=== PATIENT | female | born 1950 | race Caucasian/White ===

== ENCOUNTER 2021-07-25 15:02 | Emergency (ER) | payer MEDICARE ==
[~2021-07-25] VITALS: Ht 162.6 cm; Wt 99.8 kg
[2021-07-25 16:08] LABS: BASOPHILS ABSOLUTE AUTO 0.04 K/mm3 (0.00-0.23); BASOPHILS PERCENT AUTO 1 % (0-2); EOSINOPHILS ABSOLUTE AUTO 0.19 K/mm3 (0.00-0.68); EOSINOPHILS PERCENT AUTO 3 % (0-6); Hematocrit 34.1 % (33.0-51.0); Hemoglobin 10.8 g/dL (11.5-16.0); IMMATURE GRAN ABSOLUTE AUTO 0.02 K/mm3 (0.00-0.10); IMMATURE GRAN PERCENT AUTO 0 % (0-1); LYMPHOCYTES ABSOLUTE AUTO 0.77 K/mm3 (0.84-5.20); LYMPHOCYTES PERCENT AUTO 13 % (21-46); MONOCYTES ABSOLUTE AUTO 0.61 K/mm3 (0.16-1.47); MONOCYTES PERCENT AUTO 11 % (4-13); Mean Corpuscular HGB 27.6 pg (26.0-34.0); Mean Corpuscular HGB Conc 31.7 g/dL (31.5-36.5); Mean Corpuscular Volume 87 fL (80-100); Mean Platelet Volume 9.4 fL (9.1-12.4); NEUTROPHILS ABSOLUTE AUTO 4.14 K/mm3 (1.96-9.15); NEUTROPHILS PERCENT AUTO 72 % (41-73); Platelet Count 199 K/mm3 (150-400); RDW Coefficient Variation 18.1 % (11.7-14.2); RDW Standard Deviation 57.3 fL (35.1-46.3); Red Blood Cell Count 3.91 M/mm3 (3.80-5.20); White Blood Cell Count 5.77 K/mm3 (4.00-11.30)
[2021-07-25] MEDS ORDERED: FURO40 PO (16:13)
[2021-07-25] MEDS ORDERED: POTCHL20ER PO (16:13)
[2021-07-25] MEDS ORDERED: ALDACTONE100 MG PO (16:14)
[2021-07-25] MEDS ORDERED: EUTHYROX75 MC1 PO (16:14)
[2021-07-25 16:32] LABS: Albumin, Blood 2.6 g/dL (3.4-5.0); Albumin/Globulin Ratio 0.5 (0.8-1.8); Bilirubin, Total 2.8 mg/dL (0.1-1.0); Bun/Creatinine Ratio 18.8 (12.0-20.0); Calcium, Blood 8.6 mg/dL (8.5-10.1); Creatinine, Blood 0.96 mg/dL (0.40-1.00); Globulin, Blood 4.9 g/dL (2.2-4.0); Magnesium, Blood 2.1 mg/dL (1.6-2.4); Potassium, Blood 3.4 mmol/L (3.5-5.5); Total Protein, Blood 7.5 g/dL (6.4-8.2)
[2021-07-25 17:21] LABS: International Normalized Ratio 1.33; Prothrombin Time Results 14.1 Sec (9.7-11.5)
== END 2021-07-25 18:35 | disposition home or self-care (01) ==
LOC: ER 15:02
PROVIDERS: Emergency Medicine; Physician Assistant
DX: K72.90 Hepatic failure, unspecified without coma (principal); K74.60 Unspecified cirrhosis of liver; R18.8 Other ascites; E03.9 Hypothyroidism, unspecified; Z79.899 Other long term (current) drug therapy
CPT/HCPCS: 71045; 80053; 83735; 85025; 85610; 85730; 93005; 93010; 99284-25

== ENCOUNTER 2021-11-12 15:35 | Emergency (ER) | payer SELFPAY ==
[~2021-11-12] VITALS: Ht 160 cm; Wt 96.2 kg
[~2021-11-12 15:35] MED LIST: ALDACTONE100 MG PO; EUTHYROX75 MC1 PO; FURO40 PO; POTCHL20ER PO
[2021-11-12 16:28] LABS: BASOPHILS ABSOLUTE AUTO 0.05 K/mm3 (0.00-0.23); BASOPHILS PERCENT AUTO 1 % (0-2); EOSINOPHILS ABSOLUTE AUTO 0.19 K/mm3 (0.00-0.68); EOSINOPHILS PERCENT AUTO 2 % (0-6); Hematocrit 34.3 % (33.0-51.0); Hemoglobin 11.3 g/dL (11.5-16.0); IMMATURE GRAN ABSOLUTE AUTO 0.05 K/mm3 (0.00-0.10); IMMATURE GRAN PERCENT AUTO 1 % (0-1); LYMPHOCYTES ABSOLUTE AUTO 0.95 K/mm3 (0.84-5.20); LYMPHOCYTES PERCENT AUTO 11 % (21-46); MONOCYTES ABSOLUTE AUTO 0.99 K/mm3 (0.16-1.47); MONOCYTES PERCENT AUTO 11 % (4-13); Mean Corpuscular HGB 28.8 pg (26.0-34.0); Mean Corpuscular HGB Conc 32.9 g/dL (31.5-36.5); Mean Corpuscular Volume 87 fL (80-100); NEUTROPHILS ABSOLUTE AUTO 6.63 K/mm3 (1.96-9.15); NEUTROPHILS PERCENT AUTO 75 % (41-73); Platelet Count 222 K/mm3 (150-400); RDW Coefficient Variation 20.5 % (11.7-14.2); RDW Standard Deviation 65.3 fL (35.1-46.3); Red Blood Cell Count 3.93 M/mm3 (3.80-5.20); White Blood Cell Count 8.86 K/mm3 (4.00-11.30)
[2021-11-12 16:45] LABS: International Normalized Ratio 1.28; Prothrombin Time Results 13.2 Sec (9.7-11.5)
== END 2021-11-12 17:06 | disposition home or self-care (01) ==
LOC: ER 15:35
PROVIDERS: Physician Assistant
DX: R18.8 Other ascites (principal); E03.9 Hypothyroidism, unspecified; Z79.899 Other long term (current) drug therapy
CPT/HCPCS: 85025; 85610; 85730; 99284

== ENCOUNTER 2021-11-13 15:21 | Day surgery (SDC) | payer SELFPAY | END 2021-11-13 23:59 | disposition home or self-care (01) | LOC: US 15:21 | DX: R18.8 Other ascites (principal) | CPT/HCPCS: 49083 ==

== ENCOUNTER 2021-11-19 16:06 | Inpatient (IN) | payer MEDICARE ==
[~2021-11-19] VITALS: Ht 160 cm; Wt 94.0 kg
[2021-11-19 16:27] LABS: BASOPHILS ABSOLUTE AUTO 0.04 K/mm3 (0.00-0.23); BASOPHILS PERCENT AUTO 0 % (0-2); EOSINOPHILS ABSOLUTE AUTO 0.08 K/mm3 (0.00-0.68); EOSINOPHILS PERCENT AUTO 0 % (0-6); Hematocrit 30.9 % (33.0-51.0); Hemoglobin 10.3 g/dL (11.5-16.0); IMMATURE GRAN ABSOLUTE AUTO 0.21 K/mm3 (0.00-0.10); IMMATURE GRAN PERCENT AUTO 1 % (0-1); LYMPHOCYTES ABSOLUTE AUTO 0.66 K/mm3 (0.84-5.20); LYMPHOCYTES PERCENT AUTO 4 % (21-46); MONOCYTES ABSOLUTE AUTO 1.11 K/mm3 (0.16-1.47); MONOCYTES PERCENT AUTO 6 % (4-13); Mean Corpuscular HGB 29.3 pg (26.0-34.0); Mean Corpuscular HGB Conc 33.3 g/dL (31.5-36.5); Mean Corpuscular Volume 88 fL (80-100); Mean Platelet Volume 8.7 fL (9.1-12.4); NEUTROPHILS ABSOLUTE AUTO 15.89 K/mm3 (1.96-9.15); NEUTROPHILS PERCENT AUTO 88 % (41-73); Platelet Count 211 K/mm3 (150-400); RDW Coefficient Variation 20.5 % (11.7-14.2); RDW Standard Deviation 65.2 fL (35.1-46.3); Red Blood Cell Count 3.52 M/mm3 (3.80-5.20); White Blood Cell Count 17.99 K/mm3 (4.00-11.30)
[2021-11-19 16:53] LABS: Albumin, Blood 2.2 g/dL (3.4-5.0); Albumin/Globulin Ratio 0.5 (0.8-1.8); Bilirubin, Total 3.5 mg/dL (0.1-1.0); Bun/Creatinine Ratio 21.3 (12.0-20.0); Calcium, Blood 7.8 mg/dL (8.5-10.1); Creatinine, Blood 1.22 mg/dL (0.40-1.00); Globulin, Blood 4.1 g/dL (2.2-4.0); Potassium, Blood 3.8 mmol/L (3.5-5.5); Total Protein, Blood 6.3 g/dL (6.4-8.2)
[2021-11-19 19:16] LABS: Free Thyroxine 1.45 ng/dL (0.70-1.60); Triiodothyronine, Free 1.05 pg/mL (2.18-3.98)
[2021-11-19 20:54] LABS: Source, Urine Clean Catch
[2021-11-19 21:04] LABS: Bilirubin, Urine Neg (Neg); Blood, Urine 1+ (Neg); Glucose Qualitative, Urine Neg (Neg); Ketones, Urine Neg (Neg); Leukocyte Esterase, Urine 1+ (Neg); Nitrite, Urine Neg (Neg); Protein, Urine Neg (Neg); Urobilinogen, Urine 1+ (Normal)
[2021-11-19 21:16] LABS: Appearance, Urine Hazy (Clear); Color, Urine Yellow (P-Yellow)
[2021-11-19 21:18] LABS: Bacteria Many /hpf; Red Blood Cells, Urine 0-2 /hpf (0-2); Squamous Epithelial Cells Mod /hpf (Few)
[2021-11-19 22:31] LABS: Automated BF RBC Count 0.002 M/mm3 (0-0); Body Fluid WBC Count 130 /mm3 (0-999)
[2021-11-19 22:48] LABS: Glucose, Body Fluid 146 mg/dL; Lactate Dehydrogenase, Body Fl 27 U/L; Protein, Body Fluid 0.7 g/dL
[2021-11-19 23:14] LABS: Total Cell Count, Body Fluid 100
[2021-11-19 23:15] LABS: Appearance, Body Fluid Hazy (Clear); Color, Body Fluid L Yellow (None-Yellow)
--- NOTE | 2021-11-20 02:41 | NUR ---
ASSUMPTION OF CARE RECEIVED REPORT FROM ED RN, ASSUMED CARE OF PATIENT. PATIENT ADMITTED TO PCU, REMAINS IN ED AT THIS TIME. PATIENT A/O. SOB IMPROVING, VITALS STABLE. IV IN RAC SL. MEDEIROS CATHETER PATENT AND DRAINING CLEAR, YELLOW URINE. WILL REVIEW ORDERS AND TREAT PRESCRIBED.
--- NOTE | 2021-11-20 03:27 | NUR ---
OXYGEN PATIENT REQUESTING OXYGEN STATING IT RELIEVES HER SOB. 2L 02 VIA NC PLACED PER REQUEST. 02 SATS REMAINED STABLE.
[2021-11-20 06:25] LABS: BASOPHILS ABSOLUTE AUTO 0.03 K/mm3 (0.00-0.23); BASOPHILS PERCENT AUTO 0 % (0-2); EOSINOPHILS ABSOLUTE AUTO 0.36 K/mm3 (0.00-0.68); EOSINOPHILS PERCENT AUTO 3 % (0-6); Hematocrit 30.7 % (33.0-51.0); IMMATURE GRAN ABSOLUTE AUTO 0.21 K/mm3 (0.00-0.10); IMMATURE GRAN PERCENT AUTO 1 % (0-1); LYMPHOCYTES ABSOLUTE AUTO 0.98 K/mm3 (0.84-5.20); LYMPHOCYTES PERCENT AUTO 7 % (21-46); MONOCYTES ABSOLUTE AUTO 1.46 K/mm3 (0.16-1.47); MONOCYTES PERCENT AUTO 10 % (4-13); Mean Corpuscular HGB Conc 32.6 g/dL (31.5-36.5); Mean Corpuscular Volume 89 fL (80-100); Mean Platelet Volume 8.8 fL (9.1-12.4); NEUTROPHILS ABSOLUTE AUTO 11.56 K/mm3 (1.96-9.15); NEUTROPHILS PERCENT AUTO 79 % (41-73); Platelet Count 190 K/mm3 (150-400); RDW Coefficient Variation 20.6 % (11.7-14.2); RDW Standard Deviation 67.5 fL (35.1-46.3); Red Blood Cell Count 3.45 M/mm3 (3.80-5.20)
[2021-11-20 06:38] LABS: International Normalized Ratio 1.43; Prothrombin Time Results 14.7 Sec (9.7-11.5)
--- NOTE | 2021-11-20 06:46 | NUR ---
SHIFT SUMMARY SOB DECREASING THROUGH SHIFT. VITALS STABLE, 02 AT 2L VIA NC FOR PATIENT'S COMFORT. PATIENT ABLE TO CLEARLY COMMUNICATE NEEDS AND DISCOMFORTS. CONTINUES TO STAY IN ED AWAITING BED IN PCU UNIT. MEDEIROS REMAINS PATENT AND DRAINING. CONTINUING TO MONITOR, WILL REPORT TO ONCOMING RN.
[2021-11-20 07:12] LABS: Albumin, Blood 2.2 g/dL (3.4-5.0); Albumin/Globulin Ratio 0.6 (0.8-1.8); Bilirubin, Total 3.6 mg/dL (0.1-1.0); Bun/Creatinine Ratio 23.7 (12.0-20.0); Calcium, Blood 8.1 mg/dL (8.5-10.1); Creatinine, Blood 1.14 mg/dL (0.40-1.00); Globulin, Blood 3.9 g/dL (2.2-4.0); Potassium, Blood 4.2 mmol/L (3.5-5.5); Total Protein, Blood 6.1 g/dL (6.4-8.2)
[2021-11-20 11:48] LABS: Albumin, Body Fluid 0.4 g/dL; Glucose, Body Fluid 143 mg/dL; Lactate Dehydrogenase, Body Fl 57 U/L; Protein, Body Fluid 1.1 g/dL
[2021-11-20 12:19] LABS: Appearance, Body Fluid Cloudy (Clear); Color, Body Fluid Yellow (None-Yellow); Total Cell Count, Body Fluid 100
[2021-11-20 12:27] LABS: Automated BF RBC Count 0.004 M/mm3 (0-0); Automated BF WBC Count 0.238 K/mm3 (0-999); Body Fluid WBC Count 238 /mm3 (0-999); RBC Count, Body Fluid 4000 /mm3 (0-0)
--- NOTE | 2021-11-20 14:30 | NUR ---
RECEIVED PT FROM ER [facility]IA [facility]. PT IS A&0X4. DENIES PAIN. PT IS ORTHOPNEIC AND SOB WITH EXERTION. LUNGS DIMINISHED ON THE RIGHT. 1 LITER REMOVED TODAY WITH THORACENTESIS-BANDAIDE IN PLACE. SATS>90% ON RA. NO NOTED COUGH. ECG SHOWS SR. SBP TRENDING 90'S. ANASARCA AND PERIPHERAL EDEMA TO LOWER EXTREMITIES. PT DENIES NAUSEA. 5 LITERS REMOVED TODAY WITH PARACENTESIS-BANDAIDE INTACT TO LEFT ABDOMEN. MEDEIROS DRAINING ADEQUATE AMOUNT OF YELLOW URINE. SKIN IS JAUNDICED. SKIN FRAIL WITH SCATTERED BRUISES T/O-ESPECIALLY TO UPPER EXTREMITIES. PT DAUGHTER TO DELIVER PT BELONGINGS. PT REQUESTED THAT STAFF AURIST THE BELONGINGS OUT FRONT OF THE HOSPITAL AND DELIVER $60 (3 20$ BILLS). DARINEL MEDINA TO GIVE PT DAUGHTER KAJAL THE 60$ AND AURIST PT BELONGINGS WELL.
--- NOTE | 2021-11-20 18:15 | NUR ---
PT TO MRI VIA BED.
--- NOTE | 2021-11-20 20:00 | NUR ---
PT RETURNS FROM MRI AT 1900. PT ALERT AND ORIENTED. PLEASANT AND COOPERATIVE WITH CARE AND ASSESSMENT. PT DENIES PAIN AT THIS TIME. ROOM AIR. NO COMPLAINTS OF DYSPNEA. PT STATES BREATHING HAS IMPROVED GREATLY AFTER THORACENTESIS AND PARACENTESIS. WILL REVIEW CHART AND PLAN OF CARE FOR THIS PT.
--- NOTE | 2021-11-20 23:15 | NUR ---
PT RESTING COMFORTABLY IN BED. NO COMPLAINTS. NO S/S DISTRESS. NO DYSPNEA. WILL CONTINUE TO MONITOR.
[2021-11-21 03:10] LABS: BASOPHILS ABSOLUTE AUTO 0.02 K/mm3 (0.00-0.23); BASOPHILS PERCENT AUTO 0 % (0-2); EOSINOPHILS ABSOLUTE AUTO 0.27 K/mm3 (0.00-0.68); EOSINOPHILS PERCENT AUTO 4 % (0-6); Hematocrit 26.8 % (33.0-51.0); Hemoglobin 8.9 g/dL (11.5-16.0); IMMATURE GRAN ABSOLUTE AUTO 0.09 K/mm3 (0.00-0.10); IMMATURE GRAN PERCENT AUTO 1 % (0-1); LYMPHOCYTES PERCENT AUTO 13 % (21-46); MONOCYTES ABSOLUTE AUTO 0.78 K/mm3 (0.16-1.47); MONOCYTES PERCENT AUTO 11 % (4-13); Mean Corpuscular HGB 29.9 pg (26.0-34.0); Mean Corpuscular HGB Conc 33.2 g/dL (31.5-36.5); Mean Corpuscular Volume 90 fL (80-100); Mean Platelet Volume 8.9 fL (9.1-12.4); NEUTROPHILS ABSOLUTE AUTO 4.96 K/mm3 (1.96-9.15); NEUTROPHILS PERCENT AUTO 71 % (41-73); Platelet Count 142 K/mm3 (150-400); RDW Coefficient Variation 20.5 % (11.7-14.2); RDW Standard Deviation 66.7 fL (35.1-46.3); Red Blood Cell Count 2.98 M/mm3 (3.80-5.20); White Blood Cell Count 7.02 K/mm3 (4.00-11.30)
[2021-11-21 03:57] LABS: Albumin, Blood 2.3 g/dL (3.4-5.0); Albumin/Globulin Ratio 0.9 (0.8-1.8); Bilirubin, Total 2.8 mg/dL (0.1-1.0); Calcium, Blood 7.7 mg/dL (8.5-10.1); Creatinine, Blood 1.13 mg/dL (0.40-1.00); Globulin, Blood 2.6 g/dL (2.2-4.0); Potassium, Blood 4.2 mmol/L (3.5-5.5); Total Protein, Blood 4.9 g/dL (6.4-8.2)
--- NOTE | 2021-11-21 05:47 | NUR ---
PT HAS BEEN ABLE TO REST THIS NIGHT. AWAKENS EASILY IF NEEDED. NO COMPLAINTS OF DYSPNEA. DOES HAVE SHORT SPORATIC PLEURITIC TYPE PAIN. THIS IS BRIEF. BLOOD PRESSURES REMAIN MILDLY LOW THOUGH MAINTAINS MAP > 65. PT DOES TAKE MIDODRINE FOR BLOOD PRESSURE SUPPORT. WILL CONTINUE TO MONITOR PT, AND WILL REPORT OFF TO ONCOMING RN.
[2021-11-21 06:10] LABS: HBSAG SCREEN Negative (Negative); HEP B CORE AB, TOT Positive (Negative); HEP C VIRUS AB >11.0 (0.0-0.9)
--- NOTE | 2021-11-21 08:00 | NUR ---
PT A&OX4. PT DENIES PAIN OR SOB AT REST. ECG SHOWS SR. BP 84/54 WITH MAP 60. LASIX AND ALDACTONE HELD THIS AM. PT REFUSED LOVENOX INJECTION-STATES "I WANT TO TALK TO MY DOCTOR ABOUT THAT." ANASARCA AND 3+ LOWER EXTREMITY EDEMA CONTINUES. LOWER EXTREMITIES ELEVATED ON PILLOWS. LUNGS DIMINISHED THROUGH OUT THE RIGHT, BUT PT MAINTAINS SATS>90% ON RA. SOME SOB WITH EXERTION. NO NOTED COUGH. PT REPORTS INTERMITTENT NAUSEA AND DECREASED APPETITE. PT ATE A FEW BITES OF HER BREAKFAST AND THEN REQUESTED TO "JUST COVER IT AND LEAVE IT IN HERE FOR ME." REQUEST GRANTED. PT ABLE TO REPOSITION HERSELF IN BED AND UTILIZES CALL SYSTEM. CALL LIGHT PLACED WITHIN PT REACH.
--- NOTE | 2021-11-21 12:00 | NUR ---
PT HAS BEEN SLEEPING WHEN NOT DISTURBED. PT AWAKENS EASILY TO VOICE. PT DENIES PAIN OR SOB, BUT DOES REPORT NAUSEA. PT REFUSING ANTI-EMETIC. PT REQUESTS TO JUST SLEEP. REFUSING LUNCH. BP 86/52 AND MAP 62-PT GIVEN MIDODRINE 7.5 MG PO AND ALBUMIN INITIATED.
--- NOTE | 2021-11-21 16:00 | NUR ---
PT CONTINUES TO SLEEP WHEN NOT DISTURBED. AWAKENS EASILY TO VOICE AND A&OX4. SBP 90'S AND MAP 60-65. TEMP 99.1. PT DENIES SOB AND MAINTAINS SATS>90% ON RA. PT REPORTS ONGOING NAUSEA AND REFUSES ANTI-EMETICS. MEDEIROS OUTPUT IMPROVED SINCE LASIX GIVEN. ASSISTED PT TO COMFORT ON LEFT SIDE. CALL LIGHT PLACED WITHIN REACH. PT STATES THAT SHE "JUST NEEDS TO SLEEP." PT WILL CALL FOR ASSIST PRN.
--- NOTE | 2021-11-21 18:50 | NUR ---
PT LAYING ON HER LEFT SIDE WITH HER FEET HANGING OVER THE SIDE OF THE BED. RN AND GOVERNMENT CLERK OFFERED TO BOOST PT IN BED AND REPOSITION. PT REFUSES REPOSITIONING-STATES "NO! I AM COMFORTABLE!"
--- NOTE | 2021-11-21 20:00 | NUR ---
ASSUMED CARE OF PT AT 1915. REPORT RECEIVED. PT PRESENTS IN BED. ALERT AND ORIENTED WITH A SOMEWHAT WITHDRAWN/FLAT AFFECT. PT STATES SHE IS JUST FEELING "SICK" THIS DAY AND CLAIMS THAT THIS IS NORMAL AFTER A BUSY DAY SHE HAD YESTERDAY TO FEEL VERY EXHAUSED THE NEXT DAY. PT STATES HER NAUSEA IS NOT TOO BAD AT THIS TIME. DISCUSSED MEDICATION OPTIONS WITH ANTIEMEDICS. SHE WILL CALL IF SHE WOULD LIKE TO TRY ONE. SHE ALSO ADDS THAT SHE FEELS "GASSY" TODAY. THIS MAY BE RELATED TO PROBIOTICS THAT SHE IS PRESCRIBED AT HOSPITAL. PT UNDERSTANDS IMPORTANCE OF MOVING ABOUT IN BED. ALSO ENCOURAGED THAT GOAL FOR TOMORROW SHOULD INCLUDE GETTING UP TO A RECLINER CHAIR AND INCREASE HER ACTIVITIES. SHE AGREES WITH THIS PLAN. WILL REVIEW CHART AND PLAN OF CARE FOR THIS PT.
--- NOTE | 2021-11-22 | NUR ---
ASSUMED CARE OF PT AT 1915. REPORT RECEIVED. PT PRESENTS IN BED - SLEEPING. NO APPARENT DISTRESS TO NOTE. PER MONITOR, PT IN SINUS RHYTHM. AFEBRIL. NO S/S DYSPNEA. WILL REVIEW CHART AND PLAN OF CARE FOR THIS PT.
--- NOTE | 2021-11-22 02:35 | NUR ---
PT HAS BEEN RESTING THIS NIGHT. HAS NO VOICED COMPLAINTS AT THIS TIME. NO S/S ADVERSE REACTION TO ANTIBIOTIC THERAPY. WAS ABLE TO EAT HER DINNER ROLL WITHOUT NAUSEA. HAS BEEN TURNING HERSELF IN BED.
[2021-11-22 04:34] LABS: BASOPHILS ABSOLUTE AUTO 0.04 K/mm3 (0.00-0.23); BASOPHILS PERCENT AUTO 1 % (0-2); EOSINOPHILS ABSOLUTE AUTO 0.23 K/mm3 (0.00-0.68); EOSINOPHILS PERCENT AUTO 3 % (0-6); Hematocrit 26.4 % (33.0-51.0); Hemoglobin 8.8 g/dL (11.5-16.0); IMMATURE GRAN ABSOLUTE AUTO 0.15 K/mm3 (0.00-0.10); IMMATURE GRAN PERCENT AUTO 2 % (0-1); LYMPHOCYTES ABSOLUTE AUTO 0.98 K/mm3 (0.84-5.20); LYMPHOCYTES PERCENT AUTO 13 % (21-46); MONOCYTES PERCENT AUTO 15 % (4-13); Mean Corpuscular HGB 29.7 pg (26.0-34.0); Mean Corpuscular HGB Conc 33.3 g/dL (31.5-36.5); Mean Corpuscular Volume 89 fL (80-100); Mean Platelet Volume 8.7 fL (9.1-12.4); NEUTROPHILS ABSOLUTE AUTO 4.91 K/mm3 (1.96-9.15); NEUTROPHILS PERCENT AUTO 66 % (41-73); Platelet Count 155 K/mm3 (150-400); RDW Coefficient Variation 21.1 % (11.7-14.2); RDW Standard Deviation 68.1 fL (35.1-46.3); Red Blood Cell Count 2.96 M/mm3 (3.80-5.20); White Blood Cell Count 7.41 K/mm3 (4.00-11.30)
[2021-11-22 05:01] LABS: Albumin, Blood 2.7 g/dL (3.4-5.0); Bilirubin, Total 3.7 mg/dL (0.1-1.0); Bun/Creatinine Ratio 25.3 (12.0-20.0); Creatinine, Blood 0.95 mg/dL (0.40-1.00); Globulin, Blood 2.6 g/dL (2.2-4.0); Total Protein, Blood 5.3 g/dL (6.4-8.2)
--- NOTE | 2021-11-22 07:00 | NUR ---
ASSUME CARE: I have assumed care of pt. At this time she is resting quietly in bed texting on her phone. Pt reports mild nausea which is improved from yesterday. She declines any antiemetics and requests that her probiotic be held today.
[2021-11-22 09:10] LABS: HIV AB/P24 AG SCREEN Non Reactive (Non Reactive)
--- NOTE | 2021-11-22 09:12 | NUR ---
LASIX HELD FOR HYPOTENSION. WILL REASSESS AFTER MIDODRINE HAS TIME TO TAKE EFFECT.
--- NOTE | 2021-11-22 20:00 | NUR ---
ASSUMED CARE OF PT AT 1915. REPORT RECEIVED. PT PRESENTS IN BED SLEEPING. PT IN NO DISTRESS. SINUS RHYTHM PER MONITOR. WILL REVIEW CHART AND PLAN OF CARE FOR THIS PT.
--- NOTE | 2021-11-23 | NUR ---
PT HAS BEEN AWAKE. ALERT AND ORIENTED. PLEASANT AND COOPERATIVE WITH CARE AND ASSESSMENT. DENIES COMPLAINTS AT THIS TIME. REFUSES PROBIOTIC THIS EVENING CLAIMING THAT SHE BELIEVES THIS IS WHAT IS CAUSING HER GI UPSET. AGAIN, SPOKE WITH PT ABOUT BEING MORE ACTIVE. PT NEEDS ENCOURAGEMENT TO TURN AND PARTICIPATE IN CARE.
[2021-11-23 04:26] LABS: BASOPHILS ABSOLUTE AUTO 0.05 K/mm3 (0.00-0.23); BASOPHILS PERCENT AUTO 1 % (0-2); EOSINOPHILS ABSOLUTE AUTO 0.38 K/mm3 (0.00-0.68); EOSINOPHILS PERCENT AUTO 5 % (0-6); Hemoglobin 8.7 g/dL (11.5-16.0); IMMATURE GRAN PERCENT AUTO 3 % (0-1); LYMPHOCYTES ABSOLUTE AUTO 0.91 K/mm3 (0.84-5.20); LYMPHOCYTES PERCENT AUTO 12 % (21-46); MONOCYTES ABSOLUTE AUTO 1.32 K/mm3 (0.16-1.47); MONOCYTES PERCENT AUTO 17 % (4-13); Mean Corpuscular HGB 29.1 pg (26.0-34.0); Mean Corpuscular HGB Conc 32.2 g/dL (31.5-36.5); Mean Corpuscular Volume 90 fL (80-100); Mean Platelet Volume 8.5 fL (9.1-12.4); NEUTROPHILS ABSOLUTE AUTO 4.85 K/mm3 (1.96-9.15); NEUTROPHILS PERCENT AUTO 63 % (41-73); Platelet Count 141 K/mm3 (150-400); RDW Coefficient Variation 20.8 % (11.7-14.2); Red Blood Cell Count 2.99 M/mm3 (3.80-5.20); White Blood Cell Count 7.71 K/mm3 (4.00-11.30)
[2021-11-23 04:48] LABS: Alanine Aminotransfer (ALT/SGP 13 U/L (12-78); Albumin, Blood 2.4 g/dL (3.4-5.0); Alk Phos 53 U/L (50-136); Anion Gap 6 mmol/L (6-16); Aspartate Aminotrans (AST/SGOT 27 U/L (12-37); Bilirubin, Total 3.1 mg/dL (0.1-1.0); Blood Urea Nitrogen 21 mg/dL (8-24); Bun/Creatinine Ratio 24.6 (12.0-20.0); CO2, Blood 29 mmol/L (21-32); Calcium, Blood 7.9 mg/dL (8.5-10.1); Chloride, Blood 101 mmol/L (98-108); Creatinine, Blood 0.85 mg/dL (0.40-1.00); Globulin, Blood 2.5 g/dL (2.2-4.0); Glomerular Filtration Rate >60 (60-); Glucose, Blood 119 mg/dL (70-99); Potassium, Blood 3.9 mmol/L (3.5-5.5); Sodium, Blood 136 mmol/L (136-145); Total Protein, Blood 4.9 g/dL (6.4-8.2)
--- NOTE | 2021-11-23 06:46 | NUR ---
PT ENCOURAGED TO INCREASE ACTIVITIES TODAY. PT HAS BEEN HAVING A DECREASED APPETITE. LACKING IN MOTIVATION. PT CONTINUES WITH LOWER EXTREMITY EDEMA, MORESO LEFT LOWER. LIGHT REDNESS FROM LEFT LEG HAS BEEN IMPROVING. WILL CONTINUE TO MONITOR PT, AND WILL REPORT OFF TO ONCOMING RN.
--- NOTE | 2021-11-23 10:24 | NUR ---
ASSUME CARE: I assumed care of this pt at 0700.
--- NOTE | 2021-11-23 18:33 | NUR ---
SHIFT SUMMAY: Pt up with PT today. She is ambulatory with walker with standby assist. Pt took a shower and sat in chair for about an hour with encouragement. Perez was removed this morning with 350 mls of concentrated urine out after. Pt is continent and will use call light appropriately.
--- NOTE | 2021-11-23 20:36 | NUR ---
ASSUMED PT CARE AT 1915 PT ALERT AND ORIENTED AND ABLE TO MAKE NEEDS KNOWN. PLEASANT AND COOPERATIVE WITH CARES. PT STATED SHE FEELS GREAT, SHE ISN'T NAUSEAS, DENIES DIZZINESS, WELL DENIES BEING SOB. PT STATED HER PROBIOTIC WAS MAKING HER NAUSEAS YESTERDAY AND SHE WILL JUST HAVE TO "FIND SOMETHING ELSE THAT WORKS JUST GOOD". PT NOTED TO BECOME SOB WITH TALKING AND ANY LITTLE BIT OF EXERTION. PT REMAINS ON ROOM AIR WITH OXYGEN SATURATIONS >90%. RR 20'S. NSR WITH HR 70'S. BP'S STABLE WITH SBP 80'S AND MAP 65. PT RECEIVING MIDODRINE TID AND DIURETICS DAILY. ABDOMEN REMAINS SEVERELY DISTENDED AND FIRM UPON PALPATION; ACTIVE BT NOTED. PT HAD A BM TODAY. MEDEIROS WAS REMOVED ON DAY SHIFT AND PER REPORT PT VOIDED 350CC SINCE THEN. PT NOTED TO BE SLIGHTLY JAUNDICED AND EDEMATOUS. +3 PITTING TO BILATERAL FEET AND ANKLES; +2 TO BILATERAL ALVARADO AREAS. REDNESS NOTED TO LLE, WHICH IS WARM TO THE TOUCH; DX OF CELLULITIS. OVERALL SKIN IS INTACT WITH SCATTERED BRUISING AND A PUNCTURE SITE FROM PARACENTESIS. CALL LIGHT WITHIN REACH AND PT IS ABLE TO MAKE HER NEEDS KNOWN. REPORT GIVEN TO MEDICAL FLOOR RN; PT BEING TRANSFERRED TO ROOM 325.
--- NOTE | 2021-11-23 21:18 | NUR ---
TRANSFER: REPORT WAS RECIEVED FROM [facility] CUSTOMER SERVICE CLERK. PERSISTANT HYPOTENSION WAS REVEIWED WITH CUSTOMER SERVICE CLERK PRIOR TO TRANSFER. THIS WAS ALSO REVIEWED WITH TON CONTAINER FILLER AND RETAIL DEPARTMENT RESET FOR APPROPRIATENESS OF TRANSFER. BP ON ADMISSION TO UNIT WAS 92/58 MEAN OF 69. PATIENT IS ORIENTED TO ROOM AND CALL GARVEY. BED ALARM IS ON FOR SAFETY.
[2021-11-24 04:59] LABS: BASOPHILS ABSOLUTE AUTO 0.06 K/mm3 (0.00-0.23); BASOPHILS PERCENT AUTO 1 % (0-2); EOSINOPHILS ABSOLUTE AUTO 0.44 K/mm3 (0.00-0.68); EOSINOPHILS PERCENT AUTO 5 % (0-6); Hemoglobin 8.8 g/dL (11.5-16.0); IMMATURE GRAN ABSOLUTE AUTO 0.24 K/mm3 (0.00-0.10); IMMATURE GRAN PERCENT AUTO 3 % (0-1); LYMPHOCYTES ABSOLUTE AUTO 1.11 K/mm3 (0.84-5.20); LYMPHOCYTES PERCENT AUTO 14 % (21-46); MONOCYTES ABSOLUTE AUTO 1.31 K/mm3 (0.16-1.47); MONOCYTES PERCENT AUTO 16 % (4-13); Mean Corpuscular HGB 29.7 pg (26.0-34.0); Mean Corpuscular HGB Conc 32.6 g/dL (31.5-36.5); Mean Corpuscular Volume 91 fL (80-100); Mean Platelet Volume 9.1 fL (9.1-12.4); NEUTROPHILS ABSOLUTE AUTO 5.03 K/mm3 (1.96-9.15); NEUTROPHILS PERCENT AUTO 61 % (41-73); Platelet Count 130 K/mm3 (150-400); RDW Coefficient Variation 20.8 % (11.7-14.2); RDW Standard Deviation 67.7 fL (35.1-46.3); Red Blood Cell Count 2.96 M/mm3 (3.80-5.20); White Blood Cell Count 8.19 K/mm3 (4.00-11.30)
[2021-11-24 05:28] LABS: Alanine Aminotransfer (ALT/SGP 10 U/L (12-78); Albumin, Blood 2.2 g/dL (3.4-5.0); Albumin/Globulin Ratio 0.8 (0.8-1.8); Alk Phos 62 U/L (50-136); Anion Gap 5 mmol/L (6-16); Aspartate Aminotrans (AST/SGOT 37 U/L (12-37); Bilirubin, Total 1.7 mg/dL (0.1-1.0); Blood Urea Nitrogen 19 mg/dL (8-24); Bun/Creatinine Ratio 23.4 (12.0-20.0); CO2, Blood 30 mmol/L (21-32); Calcium, Blood 7.6 mg/dL (8.5-10.1); Chloride, Blood 101 mmol/L (98-108); Creatinine, Blood 0.81 mg/dL (0.40-1.00); Globulin, Blood 2.8 g/dL (2.2-4.0); Glomerular Filtration Rate >60 (60-); Glucose, Blood 122 mg/dL (70-99); Potassium, Blood 4.2 mmol/L (3.5-5.5); Sodium, Blood 136 mmol/L (136-145)
--- NOTE | 2021-11-24 05:37 | NUR ---
SHIFT SUMMARY: BP'S ARE HYPOTENSIVE BUT STABLE. PATIENT IS ASYMPTOMATIC. UP TO THE BSC WITH SBA X1. PATIENT DOES NOT ALWAYS USE CALL BEEL FOR ASSIST OOB, BED ALARM IS ON FOR SAFETY.
[2021-11-24 10:43] LABS: International Normalized Ratio 1.64; Prothrombin Time Results 16.7 Sec (9.7-11.5)
[2021-11-24 13:09] LABS: HBV IU/ML HBV DNA not detected IU/mL (.)
[2021-11-24 16:09] LABS: HCV LOG10 5.617 (.); HEPATITIS C QUANTITATION 414000 IU/mL (.)
[2021-11-25 06:05] LABS: BASOPHILS ABSOLUTE AUTO 0.04 K/mm3 (0.00-0.23); BASOPHILS PERCENT AUTO 1 % (0-2); EOSINOPHILS PERCENT AUTO 6 % (0-6); Hematocrit 27.8 % (33.0-51.0); Hemoglobin 8.9 g/dL (11.5-16.0); IMMATURE GRAN ABSOLUTE AUTO 0.12 K/mm3 (0.00-0.10); IMMATURE GRAN PERCENT AUTO 2 % (0-1); LYMPHOCYTES ABSOLUTE AUTO 0.89 K/mm3 (0.84-5.20); LYMPHOCYTES PERCENT AUTO 13 % (21-46); MONOCYTES ABSOLUTE AUTO 1.11 K/mm3 (0.16-1.47); MONOCYTES PERCENT AUTO 16 % (4-13); Mean Corpuscular HGB 29.4 pg (26.0-34.0); Mean Corpuscular Volume 92 fL (80-100); Mean Platelet Volume 8.6 fL (9.1-12.4); NEUTROPHILS ABSOLUTE AUTO 4.39 K/mm3 (1.96-9.15); NEUTROPHILS PERCENT AUTO 63 % (41-73); Platelet Count 123 K/mm3 (150-400); RDW Coefficient Variation 21.3 % (11.7-14.2); RDW Standard Deviation 69.1 fL (35.1-46.3); Red Blood Cell Count 3.03 M/mm3 (3.80-5.20); White Blood Cell Count 6.95 K/mm3 (4.00-11.30)
[2021-11-25 06:19] LABS: International Normalized Ratio 1.67
[2021-11-25 06:22] LABS: Alanine Aminotransfer (ALT/SGP 11 U/L (12-78); Albumin, Blood 2.3 g/dL (3.4-5.0); Albumin/Globulin Ratio 0.8 (0.8-1.8); Alk Phos 62 U/L (50-136); Anion Gap 5 mmol/L (6-16); Aspartate Aminotrans (AST/SGOT 37 U/L (12-37); Bilirubin, Total 2.2 mg/dL (0.1-1.0); Blood Urea Nitrogen 16 mg/dL (8-24); Bun/Creatinine Ratio 21.5 (12.0-20.0); CO2, Blood 30 mmol/L (21-32); Calcium, Blood 7.9 mg/dL (8.5-10.1); Chloride, Blood 101 mmol/L (98-108); Creatinine, Blood 0.74 mg/dL (0.40-1.00); Glomerular Filtration Rate >60 (60-); Glucose, Blood 103 mg/dL (70-99); Magnesium, Blood 2.5 mg/dL (1.6-2.4); Potassium, Blood 4.1 mmol/L (3.5-5.5); Sodium, Blood 136 mmol/L (136-145); Total Protein, Blood 5.3 g/dL (6.4-8.2)
--- NOTE | 2021-11-25 06:39 | NUR ---
SHIFT SUMMARY: PATIENT IS SOB AT REST, ABD. IS SERVERLY DISTENDED. BILAT FEET HAVE +3 EDEMA. PATIENT REPORTS FEELING VERY SOB UPON AWAKENING. BP'S 100/62 AND 91/61. TELI IS IN PLACE, NSR WITH RATE OF 84.
--- NOTE | 2021-11-25 16:09 | NUR ---
DAY SHIFT SUMMARY 71 YR OLD FEMALE WITH ANASARCA. PT IS ON RA. SOB AT REST D/T EDEMA AND FLUID. O2 SATS GOOD AND REMAIN IN THE 90% RANGE. PT HAD CT SCAN AND CHEST X-RAY TODAY. 3+ EDEMA TO BLE. ABDOMEN LARGE/ROUND/TIGHT WITH SOME WEEPING. PT IS ON TELE, PER TELE TAP GRINDER PT IS SR AT 69 WITH PVCS. BATTERY CHANGED IN TELE BOX AND TELE PATCHES CHANGED. A/O X3-4, STANDBY ASSIST TO BSC. CALL LIGHT WITHIN REACH OF PT, ABLE TO CALL APPROPRIATELY.
--- NOTE | 2021-11-26 04:04 | NUR ---
SHIFT SUMMARY AOX4 RECEIVED IN BED RESTING NOTED PITTING EDEMA +3 TO DENISE LOWER EXTEMITY LUNGS SOUND DIMISHED DENISE SOB WITH EXERTION .LASIX IV ADM PER ORDER CONT TELE RUNNING AT SINUS RTHYM AT 79 PER CONSERVATION PLANNER.LC CHEST PAIN AT HIS TIME .STANDBY ASSIST TO BEDSIDE COMODE
[2021-11-26 06:07] LABS: BASOPHILS ABSOLUTE AUTO 0.04 K/mm3 (0.00-0.23); BASOPHILS PERCENT AUTO 1 % (0-2); EOSINOPHILS ABSOLUTE AUTO 0.28 K/mm3 (0.00-0.68); EOSINOPHILS PERCENT AUTO 4 % (0-6); Hemoglobin 8.8 g/dL (11.5-16.0); IMMATURE GRAN ABSOLUTE AUTO 0.06 K/mm3 (0.00-0.10); IMMATURE GRAN PERCENT AUTO 1 % (0-1); LYMPHOCYTES ABSOLUTE AUTO 0.79 K/mm3 (0.84-5.20); LYMPHOCYTES PERCENT AUTO 12 % (21-46); MONOCYTES ABSOLUTE AUTO 0.78 K/mm3 (0.16-1.47); MONOCYTES PERCENT AUTO 12 % (4-13); Mean Corpuscular HGB 29.4 pg (26.0-34.0); Mean Corpuscular HGB Conc 31.4 g/dL (31.5-36.5); Mean Corpuscular Volume 94 fL (80-100); Mean Platelet Volume 9.2 fL (9.1-12.4); NEUTROPHILS ABSOLUTE AUTO 4.78 K/mm3 (1.96-9.15); NEUTROPHILS PERCENT AUTO 71 % (41-73); Platelet Count 134 K/mm3 (150-400); RDW Coefficient Variation 21.2 % (11.7-14.2); RDW Standard Deviation 72.6 fL (35.1-46.3); Red Blood Cell Count 2.99 M/mm3 (3.80-5.20); White Blood Cell Count 6.73 K/mm3 (4.00-11.30)
[2021-11-26 06:19] LABS: International Normalized Ratio 1.61; Prothrombin Time Results 16.4 Sec (9.7-11.5)
[2021-11-26 06:29] LABS: Alanine Aminotransfer (ALT/SGP 13 U/L (12-78); Albumin, Blood 2.2 g/dL (3.4-5.0); Albumin/Globulin Ratio 0.7 (0.8-1.8); Alk Phos 70 U/L (50-136); Anion Gap 4 mmol/L (6-16); Aspartate Aminotrans (AST/SGOT 37 U/L (12-37); Bilirubin, Total 1.8 mg/dL (0.1-1.0); Blood Urea Nitrogen 16 mg/dL (8-24); Bun/Creatinine Ratio 21.2 (12.0-20.0); CO2, Blood 29 mmol/L (21-32); Calcium, Blood 7.5 mg/dL (8.5-10.1); Chloride, Blood 103 mmol/L (98-108); Creatinine, Blood 0.75 mg/dL (0.40-1.00); Globulin, Blood 3.1 g/dL (2.2-4.0); Glomerular Filtration Rate >60 (60-); Glucose, Blood 130 mg/dL (70-99); Magnesium, Blood 2.3 mg/dL (1.6-2.4); Sodium, Blood 136 mmol/L (136-145); Total Protein, Blood 5.3 g/dL (6.4-8.2)
--- NOTE | 2021-11-26 06:43 | NUR ---
XRAY PATIENT PICKED UP FOR CHEST XRAY
[2021-11-26 10:18] LABS: Influenza A, PCR NEGATIVE (NEGATIVE); Influenza B, PCR NEGATIVE (NEGATIVE); Resp Syncytial Virus, PCR NEGATIVE (NEGATIVE); SARS-Cov-2 (COVID-19) PCR, MMC NEGATIVE (NEGATIVE)
[2021-11-26 12:05] LABS: Automated BF RBC Count 0.002 M/mm3 (0-0); Automated BF WBC Count 0.177 K/mm3 (0-999); Body Fluid WBC Count 177 /mm3 (0-999)
[2021-11-26 12:20] LABS: Lactate Dehydrogenase, Body Fl 23 U/L; pH, Body Fluid 7.7
[2021-11-26 12:24] LABS: Protein, Body Fluid 0.6 g/dL
[2021-11-26 12:27] LABS: Appearance, Body Fluid Cloudy (Clear); Color, Body Fluid Yellow (None-Yellow); Total Cell Count, Body Fluid 100
[2021-11-26 12:28] LABS: Glucose, Body Fluid 120 mg/dL
[2021-11-26 12:36] LABS: Albumin, Body Fluid 0.3 g/dL
--- NOTE | 2021-11-26 17:46 | NUR ---
DAY SHIFT SUMMARY 71 YEAR OLD FEMALE WITH ANASARCA. PT WENT DOWN FOR CT SCAN, CHEST X-RAY, PARA AND THORACENTESIS TODAY. 3 LITERS PULLED FROM ABDOMEN AND 1.5 LITERS FROM CHEST. PT REPORTS BEING TOLD SHE HAS AN ACTIVE HEB C WHILE DOWN FOR PROCEEDURES. BLOOD CLOT NOTED IN RT AND MAIN PORTAL VEIN. PT IS STANDBY ASSIST TO BSC, ON RA, TAKES MEDS WHOLE. CALL LIGHT WITHIN REACH OF PT AND ABLE TO CALL APPROPRIATELY.
[2021-11-27 05:51] LABS: Magnesium, Blood 2.4 mg/dL (1.6-2.4)
[2021-11-27 05:52] LABS: Alanine Aminotransfer (ALT/SGP 9 U/L (12-78); Albumin, Blood 2.4 g/dL (3.4-5.0); Alk Phos 55 U/L (50-136); Anion Gap 5 mmol/L (6-16); Aspartate Aminotrans (AST/SGOT 35 U/L (12-37); Bilirubin, Total 2.3 mg/dL (0.1-1.0); Blood Urea Nitrogen 16 mg/dL (8-24); Bun/Creatinine Ratio 19.8 (12.0-20.0); CO2, Blood 30 mmol/L (21-32); Calcium, Blood 7.6 mg/dL (8.5-10.1); Chloride, Blood 102 mmol/L (98-108); Creatinine, Blood 0.81 mg/dL (0.40-1.00); Globulin, Blood 2.4 g/dL (2.2-4.0); Glomerular Filtration Rate >60 (60-); Glucose, Blood 128 mg/dL (70-99); Potassium, Blood 3.7 mmol/L (3.5-5.5); Sodium, Blood 137 mmol/L (136-145); Total Protein, Blood 4.8 g/dL (6.4-8.2)
[2021-11-27 05:55] LABS: BASOPHILS ABSOLUTE AUTO 0.03 K/mm3 (0.00-0.23); BASOPHILS PERCENT AUTO 1 % (0-2); EOSINOPHILS ABSOLUTE AUTO 0.24 K/mm3 (0.00-0.68); EOSINOPHILS PERCENT AUTO 5 % (0-6); Hemoglobin 8.3 g/dL (11.5-16.0); IMMATURE GRAN ABSOLUTE AUTO 0.04 K/mm3 (0.00-0.10); IMMATURE GRAN PERCENT AUTO 1 % (0-1); LYMPHOCYTES ABSOLUTE AUTO 0.81 K/mm3 (0.84-5.20); LYMPHOCYTES PERCENT AUTO 16 % (21-46); MONOCYTES ABSOLUTE AUTO 0.72 K/mm3 (0.16-1.47); MONOCYTES PERCENT AUTO 14 % (4-13); Mean Corpuscular HGB 29.5 pg (26.0-34.0); Mean Corpuscular HGB Conc 31.9 g/dL (31.5-36.5); Mean Corpuscular Volume 93 fL (80-100); Mean Platelet Volume 9.9 fL (9.1-12.4); NEUTROPHILS ABSOLUTE AUTO 3.26 K/mm3 (1.96-9.15); NEUTROPHILS PERCENT AUTO 64 % (41-73); Platelet Count 117 K/mm3 (150-400); RDW Coefficient Variation 20.8 % (11.7-14.2); RDW Standard Deviation 69.4 fL (35.1-46.3); Red Blood Cell Count 2.81 M/mm3 (3.80-5.20)
--- NOTE | 2021-11-27 06:30 | NUR ---
SHIFT SUMMARY: PT IS A/OX4. POWER GLIDE IS POSITIONAL BUT LINE DRAW THIS AM WORKED. NO OTHER NEW CHANGES TO REPORT
--- NOTE | 2021-11-27 16:31 | NUR ---
SHIFT SUMMARY PT AWAKE AT START OF SHIFT, RESTING QUIETLY IN BED. PT IS NONVERBAL, BUT IS ABLE TO SHAKE HER HEAD FOR YES/NO QUESTIONS. PT ASSISTED UP TO CHAIR FOR BREAKFAST, WITH 2P MAX ASSIST AND GB WITH DIFFICULTY. R SIDE FLACCID, WITH R FACIAL DROOP. MEPILEX DRSG'S TO ELBOWS AND SCARAL AREA FOR PREVENTITIVE. PT ABLE TO TAKE MEDICATIONS CRUSHED IN APPLESAUCE W/O DIFFICULTY, BUT WAS NOT ABLE TO DRINK NECTAR THICK LIQUIDS WITH A SPOON W/O COUGHING CONSTANTLY. SPEECH TO FOR EVAL, NOTING PT COUGHING WITH THICKENED LIQUIDS WELL. BARIUM SWALLOW DONE BEFORE LUNCH; PT DID NOT DO WELL. DR PAK NOTIFIED OF NEW RECOMMENDATIONS. PALLIATIVE CARE ALSO NOTIFIED OF PT STATUS. PALLIATIVE CARE NOTIFIED FAMILY TO DISCUSS PLAN OF CARE. PT NOT WANTING TO PARTICIPATE WITH P/T YESTERDAY OR TODAY, PRETENDING TO NOT WAKE UP. PT UNWILLING TO OPEN EYES FOR PALLIATIVE CARE TODAY WELL, PRETENDING TO BE SOUND ASLEEP, BUT THEN OPENED EYES IMMEDIATELY TO FAMILY. PT AND FAMILY INFORMED OF PT'S NEED TO PARTICIPATE IN CARE IN ORDER TO IMPROVE. FAMILY VERBALIZED UNDERSTANDING. PT REPOSITIONED THRU OUT THE DAY WITH PILLOWS TO KEEP PT ROTATED. BED ALARM ON FOR SAFETY. CALL LT IN REACH.
--- NOTE | 2021-11-27 18:58 | NUR ---
SHIFT SUMMARY PT IS A&O, UP INDEPENDENTLY TO BSC. ADMITTED FOR ANASARCA; ABD AND BLE'S VERY SWOLLEN. PT ON 1200cc FR. PT IS NONCOMPLIANT WITH FR AND LOW SALT DIET. MEDS CHANGED TODAY TO INCREASE LASIX. PG TO RUQ VERY POSITIONAL. PT WITH HX OF CIRRHOSIS, HEP B, AND C. PT HOPING FOR PARACENTESIS AGAIN TODAY. CXR TO BE DONE IN AM. PT ORDERING IN FOOD AND DRINKS NOT COMPLIANT WITH DIET AND FR. ATTEMPTED TO EDU PT ON PLAN OF CARE. RESTING QUIETLY PLAYING GAMES ON PHONE. CALL LT IN REACH.
[2021-11-28 05:50] LABS: BASOPHILS ABSOLUTE AUTO 0.03 K/mm3 (0.00-0.23); BASOPHILS PERCENT AUTO 1 % (0-2); EOSINOPHILS ABSOLUTE AUTO 0.19 K/mm3 (0.00-0.68); EOSINOPHILS PERCENT AUTO 3 % (0-6); Hematocrit 26.6 % (33.0-51.0); Hemoglobin 8.9 g/dL (11.5-16.0); IMMATURE GRAN ABSOLUTE AUTO 0.02 K/mm3 (0.00-0.10); IMMATURE GRAN PERCENT AUTO 0 % (0-1); LYMPHOCYTES ABSOLUTE AUTO 1.02 K/mm3 (0.84-5.20); LYMPHOCYTES PERCENT AUTO 18 % (21-46); MONOCYTES ABSOLUTE AUTO 0.73 K/mm3 (0.16-1.47); MONOCYTES PERCENT AUTO 13 % (4-13); Mean Corpuscular HGB 30.3 pg (26.0-34.0); Mean Corpuscular HGB Conc 33.5 g/dL (31.5-36.5); Mean Corpuscular Volume 91 fL (80-100); Mean Platelet Volume 9.4 fL (9.1-12.4); NEUTROPHILS ABSOLUTE AUTO 3.76 K/mm3 (1.96-9.15); NEUTROPHILS PERCENT AUTO 66 % (41-73); Platelet Count 133 K/mm3 (150-400); RDW Coefficient Variation 21.5 % (11.7-14.2); Red Blood Cell Count 2.94 M/mm3 (3.80-5.20); White Blood Cell Count 5.75 K/mm3 (4.00-11.30)
[2021-11-28 06:04] LABS: International Normalized Ratio 1.65; Prothrombin Time Results 16.8 Sec (9.7-11.5)
[2021-11-28 06:14] LABS: Alanine Aminotransfer (ALT/SGP 10 U/L (12-78); Albumin, Blood 2.4 g/dL (3.4-5.0); Albumin/Globulin Ratio 0.9 (0.8-1.8); Alk Phos 57 U/L (50-136); Anion Gap 6 mmol/L (6-16); Aspartate Aminotrans (AST/SGOT 51 U/L (12-37); Bilirubin, Total 2.9 mg/dL (0.1-1.0); Blood Urea Nitrogen 18 mg/dL (8-24); CO2, Blood 30 mmol/L (21-32); Calcium, Blood 7.6 mg/dL (8.5-10.1); Chloride, Blood 102 mmol/L (98-108); Creatinine, Blood 0.82 mg/dL (0.40-1.00); Globulin, Blood 2.7 g/dL (2.2-4.0); Glomerular Filtration Rate >60 (60-); Glucose, Blood 88 mg/dL (70-99); Potassium, Blood 5.2 mmol/L (3.5-5.5); Sodium, Blood 138 mmol/L (136-145); Total Protein, Blood 5.1 g/dL (6.4-8.2)
--- NOTE | 2021-11-28 06:27 | NUR ---
SHIFT SUMMARY NO ACUTE EVENT IN THIS SHIFT AOX4 CONT IV ABT AND LASIX IV THERAPY DECREASED PITTING EDEMA TO DENISE LOWER EXTREMITIES. CXR THIS MORNING AT 0600AM RESULTS PENDING
[2021-11-28] MEDS ORDERED: Bumetanide2 MG PO (12:35)
[2021-11-28] MEDS ORDERED: MIDODRINE HCL10 M1 PO (12:36)
--- NOTE | 2021-11-28 13:58 | NUR ---
Per chart review with Dr. Burroughs, patient appropriate for discharge back to the [facility] with home health services. Summer with [employer] contacted and states that services will start tomorrow. I spent an hour in the patient's room completing an OHP application. I've instructed the patient to call [employer] to request a phone interview and have given her their office phone number. I scheduled an office follow up with Dr. Fredy Russell on Wednesday, December 01, 2021 at 11:20 AM. I called [facility] and scheduled transportation to [facility] with sampler pickup at the [facility] at 3:00PM for $6.75. Patient in agreement to discharge plan. She states she will be moving into a new apartment soon on [address] in [place] within the next couple of weeks. Patient also informed to follow-up with the GI specialists in [place] that she has been referred to. Patient's nurse informed and agreeable to discharge plan.
--- NOTE | 2021-11-28 14:59 | NUR ---
PT RESTING QUIETLY AT START OF SHIFT. WOKE EASILY FOR CARE. PT REPORTED THAT SHE ORDERED A BAG OF GROCERIES TO BE DELIVERED BETWEEN 10:00-12:00. PT DECLINING TO WORK WITH P/T AT 08:15 SHE WAS WAITING FOR HER DELIVERY. PT HAS BEEN NONCOMPLIANT WITH DIET AND FLUID RESTRICTION. DR HUDSON IN TO SEE PT FOR AT LEAST AN HOUR TALKING WITH PT AND DISCUSSING PLAN OF CARE AND PROGNOSIS. PT SEEMS TO HAVE UNREALISTIC EXPECTATIONS REGARDING HER DISEASE PROCESS AND TREATMENT. PT MEDICALLY STABLE FOR D/C. DISCHARGE ORDERS PLACED. FONDANT PUFF MAKER IN TO TALK WITH PT AND HELP SET UP APPOINTMENTS. D/C INSTRUCTIONS REVIEWED WITH PT WHO VERBALIZED UNDERSTANDING. FONDANT PUFF MAKER HAD ARRANGED TRANSPORTATION FOR PT, WHO LATER FOUND OTHER TRANSPORTATION HERSELF. SUNSHINE TAXI CANCELED BY WRESTLING COACH, CRISTIAN. PT ASSISTED OUT VIA W/C WITH ALL OF HER BELONGINGS AND HOME WALKER. DENIED FURTHER NEEDS.
[2021-12-04 14:09] LABS: HEPATITIS C GENOTYPE 1a (.)
== END 2021-11-28 14:41 | disposition home or self-care (01) | DRG 432 ==
LOC: ER 16:06 → ERHOLD 11-20 00:47 → ICUW 11-20 14:05 → MEDS 11-23 21:10
PROVIDERS: Family Medicine; Physician Assistant; Student in an Organized Health Care Education/Training Program; ADMIT Family Medicine
PROC: 0W9G3ZZ Drainage of Peritoneal Cavity, Percutaneous Approach (ICD-10-PCS; principal; 2021-11-20)
PROC: 0W993ZZ Drainage of Right Pleural Cavity, Percutaneous Approach (ICD-10-PCS; 2021-11-20)
PROC: 0W9G3ZZ Drainage of Peritoneal Cavity, Percutaneous Approach (ICD-10-PCS; 2021-11-26)
PROC: 0W993ZZ Drainage of Right Pleural Cavity, Percutaneous Approach (ICD-10-PCS; 2021-11-26)
DX: K74.60 Unspecified cirrhosis of liver (principal); A41.9 Sepsis, unspecified organism; I81 Portal vein thrombosis; L03.116 Cellulitis of left lower limb; R18.8 Other ascites; B19.9 Unspecified viral hepatitis without hepatic coma; N17.9 Acute kidney failure, unspecified; J90 Pleural effusion, not elsewhere classified; E03.9 Hypothyroidism, unspecified; Z88.0 Allergy status to penicillin; Z79.899 Other long term (current) drug therapy; E80.6 Other disorders of bilirubin metabolism; D63.8 Anemia in other chronic diseases classified elsewhere; B18.2 Chronic viral hepatitis C; R59.1 Generalized enlarged lymph nodes; Z20.822 Contact with and (suspected) exposure to COVID-19
CPT/HCPCS: 0241U; 32555; 36415; 49082; 49083; 51702; 71045; 71046; 71250; 74170; 74181; 76705; 80053; 81001; 82042; 82105; 82140; 82945; 83520; 83605; 83615; 83735; 83986; 84155; 84157; 84439; 84481; 85025; 85610; 85730; 86317; 86704; 86708; 86709; 86803; 87070; 87077; 87086; 87186; 87205; 87340; 87389; 87517; 87522; 87902; 88108; 88305; 89051; 93005; 93010; 93306; 93970; 96365-59; 96375-59; 97110; 97116; 97161; 97165; 97530; 97535; 99285-25; A9270; C1751; J0690; J1650; J1940; J2185; J7050; P9046; Q9967

== ENCOUNTER 2021-12-11 08:42 | Emergency (ER) | payer SELFPAY ==
[~2021-12-11] VITALS: Ht 162.6 cm; Wt 90.7 kg
[~2021-12-11 08:42] MED LIST changes: +Bumetanide2 MG PO; +MIDODRINE HCL10 M1 PO
[2021-12-11 10:51] LABS: Albumin, Blood 2.8 g/dL (3.4-5.0); Albumin/Globulin Ratio 0.7 (0.8-1.8); Bun/Creatinine Ratio 14.8 (12.0-20.0); Calcium, Blood 8.2 mg/dL (8.5-10.1); Creatinine, Blood 1.08 mg/dL (0.40-1.00); Globulin, Blood 4.1 g/dL (2.2-4.0); Potassium, Blood 4.8 mmol/L (3.5-5.5); Total Protein, Blood 6.9 g/dL (6.4-8.2)
[2021-12-11 11:25] LABS: BASOPHILS ABSOLUTE AUTO 0.03 K/mm3 (0.00-0.23); BASOPHILS PERCENT AUTO 1 % (0-2); EOSINOPHILS ABSOLUTE AUTO 0.16 K/mm3 (0.00-0.68); EOSINOPHILS PERCENT AUTO 4 % (0-6); Hematocrit 31.5 % (33.0-51.0); IMMATURE GRAN ABSOLUTE AUTO 0.01 K/mm3 (0.00-0.10); IMMATURE GRAN PERCENT AUTO 0 % (0-1); LYMPHOCYTES ABSOLUTE AUTO 0.78 K/mm3 (0.84-5.20); LYMPHOCYTES PERCENT AUTO 18 % (21-46); MONOCYTES ABSOLUTE AUTO 0.97 K/mm3 (0.16-1.47); MONOCYTES PERCENT AUTO 23 % (4-13); Mean Corpuscular HGB 30.4 pg (26.0-34.0); Mean Corpuscular HGB Conc 31.7 g/dL (31.5-36.5); Mean Corpuscular Volume 96 fL (80-100); Mean Platelet Volume 9.6 fL (9.1-12.4); NEUTROPHILS ABSOLUTE AUTO 2.33 K/mm3 (1.96-9.15); NEUTROPHILS PERCENT AUTO 55 % (41-73); Platelet Count 116 K/mm3 (150-400); RDW Coefficient Variation 21.1 % (11.7-14.2); RDW Standard Deviation 75.4 fL (35.1-46.3); Red Blood Cell Count 3.29 M/mm3 (3.80-5.20); White Blood Cell Count 4.28 K/mm3 (4.00-11.30)
== END 2021-12-11 12:45 | disposition home or self-care (01) ==
LOC: ER 08:42
PROVIDERS: Emergency Medicine
DX: J90 Pleural effusion, not elsewhere classified (principal); Z88.0 Allergy status to penicillin; Z79.899 Other long term (current) drug therapy
CPT/HCPCS: 71045; 80053; 83880; 85025; 99283-25; A9270

== ENCOUNTER 2021-12-25 16:03 | Inpatient (IN) | payer MEDICARE ==
[~2021-12-25] VITALS: Ht 160 cm; Wt 81.7 kg
[2021-12-25 19:03] LABS: BASOPHILS ABSOLUTE AUTO 0.03 K/mm3 (0.00-0.23); BASOPHILS PERCENT AUTO 0 % (0-2); EOSINOPHILS ABSOLUTE AUTO 0.19 K/mm3 (0.00-0.68); EOSINOPHILS PERCENT AUTO 2 % (0-6); Hematocrit 30.4 % (33.0-51.0); Hemoglobin 9.8 g/dL (11.5-16.0); IMMATURE GRAN ABSOLUTE AUTO 0.07 K/mm3 (0.00-0.10); IMMATURE GRAN PERCENT AUTO 1 % (0-1); LYMPHOCYTES ABSOLUTE AUTO 0.75 K/mm3 (0.84-5.20); LYMPHOCYTES PERCENT AUTO 8 % (21-46); MONOCYTES ABSOLUTE AUTO 0.77 K/mm3 (0.16-1.47); MONOCYTES PERCENT AUTO 8 % (4-13); Mean Corpuscular HGB 31.5 pg (26.0-34.0); Mean Corpuscular HGB Conc 32.2 g/dL (31.5-36.5); Mean Corpuscular Volume 98 fL (80-100); Mean Platelet Volume 9.7 fL (9.1-12.4); NEUTROPHILS ABSOLUTE AUTO 7.31 K/mm3 (1.96-9.15); NEUTROPHILS PERCENT AUTO 80 % (41-73); Platelet Count 126 K/mm3 (150-400); RDW Coefficient Variation 19.6 % (11.7-14.2); RDW Standard Deviation 69.3 fL (35.1-46.3); Red Blood Cell Count 3.11 M/mm3 (3.80-5.20); White Blood Cell Count 9.12 K/mm3 (4.00-11.30)
[2021-12-25 19:25] LABS: Albumin, Blood 2.7 g/dL (3.4-5.0); Albumin/Globulin Ratio 0.7 (0.8-1.8); Bilirubin, Total 6.7 mg/dL (0.1-1.0); Bun/Creatinine Ratio 25.5 (12.0-20.0); Creatinine, Blood 1.1 mg/dL (0.40-1.00); Globulin, Blood 3.9 g/dL (2.2-4.0); Potassium, Blood 3.8 mmol/L (3.5-5.5); Total Protein, Blood 6.6 g/dL (6.4-8.2)
[2021-12-25 22:43] LABS: Influenza A, PCR NEGATIVE (NEGATIVE); Influenza B, PCR NEGATIVE (NEGATIVE); Resp Syncytial Virus, PCR NEGATIVE (NEGATIVE); SARS-Cov-2 (COVID-19) PCR, MMC NEGATIVE (NEGATIVE)
--- NOTE | 2021-12-26 04:53 | NUR ---
PT ARRIVED FROM THE ED DUE TO SOB AND FLUID OVERLOAD. PT'S SPO2 LEVELS ARE IN THE HIGH 90'S. PT HAS AUDIBLE WHEEZING AND CRACKLING. PT HAS BLE +3 EDEMA PT IS EXPECTED TO HAVE A THERAPEUTIC THORACENTESIS SOMETIME THIS MORNING. PT CURRENTLY NPO, ON RA. NO C/O PAIN, N/V. BELONGINGS AND CALL LIGHT ARE WITHIN REACH.
[2021-12-26 04:57] LABS: International Normalized Ratio 1.74; Prothrombin Time Results 17.6 Sec (9.7-11.5)
[2021-12-26 05:04] LABS: Bun/Creatinine Ratio 26.1 (12.0-20.0); Calcium, Blood 8.7 mg/dL (8.5-10.1); Creatinine, Blood 1.15 mg/dL (0.40-1.00); Potassium, Blood 3.2 mmol/L (3.5-5.5)
[2021-12-26 14:52] LABS: Automated BF RBC Count 0.007 M/mm3 (0-0); Body Fluid WBC Count 150 /mm3 (0-999); RBC Count, Body Fluid 7000 /mm3 (0-0)
[2021-12-26 14:59] LABS: Appearance, Body Fluid Cloudy (Clear)
[2021-12-26 15:03] LABS: Albumin, Body Fluid 0.5 g/dL
[2021-12-26 15:14] LABS: Lactate Dehydrogenase, Body Fl 55 U/L
[2021-12-26 15:20] LABS: Glucose, Body Fluid 126 mg/dL; Protein, Body Fluid 1.2 g/dL; pH, Body Fluid 7.3
[2021-12-26 16:17] LABS: Total Cell Count, Body Fluid 100
--- NOTE | 2021-12-26 18:05 | NUR ---
SHIFT SUMMARY PATIENT IS ALERT AND ORIENTED X3, PLEASANT AND COOPERATIVE WITH CARE. PATIENT HAD THORACENTESIS THIS SHIFT. 1900ML OUT. PATIENT TOLERATED WELL. NO SOB SINCE PROCEDURE. PATIENT'S SYSTOLIC PRESSURES HAVE BEEN IN THE 80'S THIS SHIFT. PATIENT REFUSED DOSE OF LASIX THIS EVENING DUE TO LOW BLOOD PRESSURE. NO EVENTS ON TELE THIS SHIFT. ON RA SATTING ABOVE 90% CALL LIGHT WITHIN REACH.
--- NOTE | 2021-12-27 05:28 | NUR ---
SHIFT SUMMARY PT IS A 71 Y/O FEMALE, ADMITTED FOR ACUTE RESPIRATORY FAILURE WITH HYPOXIA. SHE IS A&O X 4, 2PA WHEN OUT OF BED. INCONTINENT. TELE SHOWED NSR IN THE 90S. BP SOFT THROUGH THE NIGHT, IN THE 80S SYSTOLIC. VITAL SIGNS OTHERWISE STABLE. NO C/O ACUTE PAIN, NAUSEA OR ACUTE SOB. NO OTHER ACUTE CHANGES IN PT CONDITION NOTED DURING THE NIGHT. WILL CONTINUE TO MONITOR AND TREAT PER EMAR UNTIL HAND OFF TO DAY SHIFT RN.
--- NOTE | 2021-12-27 17:02 | NUR ---
SHIFT SUMMARY PATIENT ALERT AND ORIENTED X3 SOME FORGETFULNESS AT TIMES. PLEASANT AND COOPERTAIVE WITH CARE. MAKES NEEDS KNOWN. PATIENT STATES "THEY WANT TO GO TO GET REHAB BEFORE RETURNING HOME." MD AWARE. PT/OT ORDERED THIS SHIFT. PATIENT HAS BEEN REFUSING LASIX THIS SHIFT. MD AWARE. NO ACUTE CHANGES. CALL LIGHT WITHIN REACH. THIS NURSE WILL CONTINUE TO CARE FOR THE PATIENT UNTIL SHIFT REPORT IS GIVEN TO ONCOMING NURSE.
--- NOTE | 2021-12-28 05:00 | NUR ---
PT IS AWAKE AND APPEARS RESTLESS. IT DOESN'T SEEM LIKE THE PT GETS SLEEP DURING THE DAY OR NIGHT. PT STATES SHE IS JUST NOT TIRED. PT'S HAS LESS SHORTNESS OF BREATH. MOBILITTY HAS INCREASED AND BREATHING SEEMS MORE EFFORTLESS. PT BELONGINGS AND CALL LIGHT WITHIN REACH.
--- NOTE | 2021-12-28 05:07 | NUR ---
PT REFUSED ABX ISSAC BECAUSE SHE STATES THERE ARE BETTER MEDICATIONS OUT THERE TO HELP AND SHE DOESN'T NEED IT.
--- NOTE | 2021-12-28 17:36 | NUR ---
SHIFT SUMMARY THE PATIENT IS ALERT AND ORIENTED X3, FORGETFUL AT TIMES BUT COOPERATIVE WITH CARE FOR THE MOST PART. THE PATIENT IS STILL REFUSING LASIX AT THIS TIME. SOB NOTED. O2 SATS AT 100% THE PATIENT HAS BEEN OUT OF BED TO THE BSC THIS SHIFT. THEY HAVE BEEN TOLERATING IT WELL. NO ACUTE CHANGES. CALL LIGHT WITHIN REACH. THIS NURSE WILL CONTINUE TO CARE FOR THE PATIENT UNTIL SHIFT REPORT IS GIVEN TO ONCOMING NURSE.
--- NOTE | 2021-12-29 06:33 | NUR ---
PT IS SLEEPING THIS MORNING. PT'S BP WAS SOFT IN THE EVENING 80'S/70'S, NOTIFIED AND ORDER 1X 500ML BOLUS OF NS. PT'S LINE WAS LEAKING SO CHARGE NURSE ATTEMPTED ANOTHER PERIPHERAL BUT WAS UNSUCESSFUL SO A POWERGLIDE WAS PLACED INSTEAD. THE PT C/O OF INCREASED SOB OVERNIGHT, SHE STATES SHE CAN FEEL THERE IS MORE FLUID IN HER LUNGS. OTHERWISE VITALS REMAINED STABLE AND PT DID NOT C/O N/V OR PAIN.
[2021-12-29 11:24] LABS: BASOPHILS ABSOLUTE AUTO 0.01 K/mm3 (0.00-0.23); BASOPHILS PERCENT AUTO 0 % (0-2); EOSINOPHILS ABSOLUTE AUTO 0.28 K/mm3 (0.00-0.68); EOSINOPHILS PERCENT AUTO 4 % (0-6); Hematocrit 28.2 % (33.0-51.0); Hemoglobin 8.9 g/dL (11.5-16.0); IMMATURE GRAN ABSOLUTE AUTO 0.02 K/mm3 (0.00-0.10); IMMATURE GRAN PERCENT AUTO 0 % (0-1); LYMPHOCYTES ABSOLUTE AUTO 0.66 K/mm3 (0.84-5.20); LYMPHOCYTES PERCENT AUTO 10 % (21-46); MONOCYTES ABSOLUTE AUTO 0.66 K/mm3 (0.16-1.47); MONOCYTES PERCENT AUTO 10 % (4-13); Mean Corpuscular HGB 31.7 pg (26.0-34.0); Mean Corpuscular HGB Conc 31.6 g/dL (31.5-36.5); Mean Corpuscular Volume 100 fL (80-100); Mean Platelet Volume 9.6 fL (9.1-12.4); NEUTROPHILS ABSOLUTE AUTO 4.95 K/mm3 (1.96-9.15); NEUTROPHILS PERCENT AUTO 75 % (41-73); Platelet Count 109 K/mm3 (150-400); RDW Coefficient Variation 19.7 % (11.7-14.2); RDW Standard Deviation 72.2 fL (35.1-46.3); Red Blood Cell Count 2.81 M/mm3 (3.80-5.20); White Blood Cell Count 6.58 K/mm3 (4.00-11.30)
[2021-12-29 11:40] LABS: Albumin, Blood 2.2 g/dL (3.4-5.0); Albumin/Globulin Ratio 0.6 (0.8-1.8); Bilirubin, Total 2.7 mg/dL (0.1-1.0); Bun/Creatinine Ratio 24.5 (12.0-20.0); Calcium, Blood 8.1 mg/dL (8.5-10.1); Creatinine, Blood 1.1 mg/dL (0.40-1.00); Globulin, Blood 3.6 g/dL (2.2-4.0); Potassium, Blood 4.2 mmol/L (3.5-5.5); Total Protein, Blood 5.8 g/dL (6.4-8.2)
--- NOTE | 2021-12-29 12:05 | NUR ---
I went and visited the patient in her room this morning. She states she would prefer to DC to a SNF and does not have a preference on facility. I have faxed over that referral this morning to both [facility] and [facility]. Patient states she also needs assistance in regards to the Medicaid application we previously completed during her last inpatient stay. I called and spoke with Anahi, patient's [employer] field sales representative that the patient has been denied due to the large amount in her Trust and that the patient would need to re-apply at a later time.
--- NOTE | 2021-12-29 18:51 | NUR ---
SHIFT SUMMARY- PT IS A/O. SHE IS INC OF STOOL CHANGED BEDDING TWICE THIS SHIFT. HER APPETITE IS POOR. HER BLOOD PRESSURE HAS BEEN SOFT. DISCUSSED WITH DR. GREEN. GAVE LASIX, BLOOD PRESSURE WAS AFFECTED. PT WAS HESITANT TO TAKE MIDODRINE, DR. CALVERT SPOKE WITH PT SHE TOOK MEDICATION. SHE IS WEAK ON HER FEET. HER BED IS IN THE LOW POSITION AND CALL LIGHT IS WITIN REACH.
--- NOTE | 2021-12-30 05:09 | NUR ---
PT IS SLEEPING THIS MORNING. PT REFUSED TO TAKE EVENING ABX, EDUCATION WAS GIVEN ABOUT THE IMPORTANCE OF THE MEDICATION BUT PT STILL REFUSED. PT STATES SHE HASN'T BEEN EATING WELL BECAUSE HER DIET IS NOT CORRECT, MORE EDUCATION WAS GIVEN ABOUT CARDIAC DIET AND HOW IT INVOLVES LOW SODIUM. PT SHOWED UNINTREST IN EDUCATIONAL TEACHING. THIS AM TELE MONITORING NOTED PT WAS BRADYING DOWN TO THE 40'S, PT OTHERWISE UNSYMPTOMATIC. PT DID C/O SOB BUT NOT PAIN, OR N/V. BLOOD PRESSURES STILL APPEAR TO BE SOFT. OTHERWISE NO OTHER ACUTE EVENTS OVERNIGHT. PT CALL LIGHT IN REACH .
[2021-12-30 06:49] LABS: Albumin, Blood 2.3 g/dL (3.4-5.0); Albumin/Globulin Ratio 0.7 (0.8-1.8); Bilirubin, Total 2.9 mg/dL (0.1-1.0); Bun/Creatinine Ratio 26.1 (12.0-20.0); Calcium, Blood 8.1 mg/dL (8.5-10.1); Creatinine, Blood 0.96 mg/dL (0.40-1.00); Globulin, Blood 3.4 g/dL (2.2-4.0); Total Protein, Blood 5.7 g/dL (6.4-8.2)
[2021-12-30 06:55] LABS: Hematocrit 28.6 % (33.0-51.0); Hemoglobin 9.5 g/dL (11.5-16.0); IMMATURE GRAN ABSOLUTE AUTO 0.07 K/mm3 (0.00-0.10); IMMATURE GRAN PERCENT AUTO 1 % (0-1); Mean Corpuscular HGB 31.5 pg (26.0-34.0); Mean Corpuscular HGB Conc 33.2 g/dL (31.5-36.5); RDW Coefficient Variation 19.7 % (11.7-14.2); Red Blood Cell Count 3.02 M/mm3 (3.80-5.20); White Blood Cell Count 7.66 K/mm3 (4.00-11.30)
[2021-12-30 07:00] LABS: BAND PERCENT MAN 2 % (0-8); BASOPHILS PERCENT MAN 0 % (0-2); EOSINOPHILS PERCENT MAN 5 % (0-6); LYMPHOCYTES PERCENT MAN 13 % (21-46); MONOCYTES PERCENT MAN 7 % (4-13); SEG NEUTROPHILS PERCENT MAN 73 % (41-73); TOTAL CELLS COUNTED 100
[2021-12-30 07:03] LABS: BASOPHILS ABSOLUTE AUTO 0.03 K/mm3 (0.00-0.23); BASOPHILS PERCENT AUTO 0 % (0-2); EOSINOPHILS ABSOLUTE AUTO 0.46 K/mm3 (0.00-0.68); EOSINOPHILS PERCENT AUTO 6 % (0-6); LYMPHOCYTES ABSOLUTE AUTO 1.06 K/mm3 (0.84-5.20); LYMPHOCYTES PERCENT AUTO 14 % (21-46); MONOCYTES ABSOLUTE AUTO 0.82 K/mm3 (0.16-1.47); MONOCYTES PERCENT AUTO 11 % (4-13); Mean Corpuscular Volume 95 fL (80-100); Mean Platelet Volume 10.3 fL (9.1-12.4); NEUTROPHILS ABSOLUTE AUTO 5.22 K/mm3 (1.96-9.15); NEUTROPHILS PERCENT AUTO 68 % (41-73); Platelet Count 98 K/mm3 (150-400)
--- NOTE | 2021-12-30 13:22 | NUR ---
CHARTING A SUPERVISOR SEWING ROOM 2 STUDENT.
--- NOTE | 2021-12-30 18:35 | NUR ---
SHIFT SUMMARY- PT IS ALERT. SHE IS EATING AND DRINKING WELL. SHE RECIEVED A THOROCENTISIS THIS AFTERNOON. HER BLOOD PRESSURES HAVE BEEN SOFT THIS SHIFT. SPOKE WITH DR. GREEN ABOUT HER BP. SHE IS TAKING MIDODRINE SCHEDULED. SHE RECIEVED TWO DOSES OF ALBUMIN. SHE WORKED WITH PT AND OT THIS SHIFT. SHE REPORTS FEELING MUCH BETTER AFTER THOROCENTISIS. HER BED IS IN THE LOW POSITION AND CALL LIGHT IS WITIN REACH.
--- NOTE | 2021-12-31 06:04 | NUR ---
SHIFT SUMMARY ALERT AND ORIENTED X'S 3. EMESIS X'S 1 AT NIGHT, UNDIGESTED FOOD. REFUSED ZOFRAN, STATED NAUSEA RESOLVED. SLEPT WELL THROUGH NIGHT. RESPIRATIONS EVEN AND UNLABORED, DENIES SOB. SAFETY MAINTAINED, CALL GARVEY IN REACH.
[2021-12-31 06:17] LABS: Albumin, Blood 2.8 g/dL (3.4-5.0); Albumin/Globulin Ratio 0.8 (0.8-1.8); Calcium, Blood 8.3 mg/dL (8.5-10.1); Creatinine, Blood 0.96 mg/dL (0.40-1.00); Globulin, Blood 3.3 g/dL (2.2-4.0); Potassium, Blood 4.6 mmol/L (3.5-5.5); Total Protein, Blood 6.1 g/dL (6.4-8.2)
[2021-12-31 06:54] LABS: Mean Platelet Volume 9.1 fL (9.1-12.4); Platelet Count 101 K/mm3 (150-400)
[2021-12-31 07:01] LABS: BASOPHILS ABSOLUTE AUTO 0.01 K/mm3 (0.00-0.23); BASOPHILS PERCENT AUTO 0 % (0-2); EOSINOPHILS ABSOLUTE AUTO 0.13 K/mm3 (0.00-0.68); EOSINOPHILS PERCENT AUTO 2 % (0-6); Hematocrit 31.4 % (33.0-51.0); IMMATURE GRAN ABSOLUTE AUTO 0.03 K/mm3 (0.00-0.10); IMMATURE GRAN PERCENT AUTO 1 % (0-1); LYMPHOCYTES ABSOLUTE AUTO 0.64 K/mm3 (0.84-5.20); LYMPHOCYTES PERCENT AUTO 12 % (21-46); MONOCYTES ABSOLUTE AUTO 0.55 K/mm3 (0.16-1.47); MONOCYTES PERCENT AUTO 10 % (4-13); Mean Corpuscular HGB 31.4 pg (26.0-34.0); Mean Corpuscular HGB Conc 31.8 g/dL (31.5-36.5); Mean Corpuscular Volume 99 fL (80-100); Mean Platelet Volume 9.8 fL (9.1-12.4); NEUTROPHILS ABSOLUTE AUTO 4.15 K/mm3 (1.96-9.15); NEUTROPHILS PERCENT AUTO 75 % (41-73); Platelet Count 102 K/mm3 (150-400); RDW Coefficient Variation 19.7 % (11.7-14.2); RDW Standard Deviation 71.7 fL (35.1-46.3); Red Blood Cell Count 3.18 M/mm3 (3.80-5.20); White Blood Cell Count 5.51 K/mm3 (4.00-11.30)
--- NOTE | 2021-12-31 13:29 | NUR ---
Per Dwight from , patient accepted for SNF placement at when appropriate for discharge. Patient acknowledges that Medicare will cover SNF for twenty days, and then day 21 copay would be $194.50 a day.
--- NOTE | 2021-12-31 17:29 | NUR ---
PATIENT IS AWAKE,ALERT AND ORIENTED TIMES THREE. PATIENT AFFECT IS FLAT. PATIENT IS RELUCTANT IN HER PLAN OF CARE. DENIES PAIN, PATIENT REFUSED TO EAT.NO ACUTE DISTRESS NOTED.
--- NOTE | 2022-01-01 04:53 | NUR ---
SHIFT ALERT AND ORIENTED X'S 4. STATED SHE FELT A LITTLE BETTER. RA, NO ACUTE DISTRESS NOTED. RESPIRATIONS UNLABORED, RHONCHI TO BILATERAL LUNGS. SLEPT IN LONG INTERALS THROUGH NIGHT. TELE: S/R. SAFETY MAINTAINED, CALL GARVEY IN REACH.
[2022-01-01 05:01] LABS: BASOPHILS ABSOLUTE AUTO 0.03 K/mm3 (0.00-0.23); BASOPHILS PERCENT AUTO 1 % (0-2); EOSINOPHILS ABSOLUTE AUTO 0.22 K/mm3 (0.00-0.68); EOSINOPHILS PERCENT AUTO 3 % (0-6); Hematocrit 28.2 % (33.0-51.0); Hemoglobin 9.2 g/dL (11.5-16.0); IMMATURE GRAN ABSOLUTE AUTO 0.04 K/mm3 (0.00-0.10); IMMATURE GRAN PERCENT AUTO 1 % (0-1); LYMPHOCYTES ABSOLUTE AUTO 1.05 K/mm3 (0.84-5.20); LYMPHOCYTES PERCENT AUTO 16 % (21-46); MONOCYTES ABSOLUTE AUTO 0.92 K/mm3 (0.16-1.47); MONOCYTES PERCENT AUTO 14 % (4-13); Mean Corpuscular HGB 32.1 pg (26.0-34.0); Mean Corpuscular HGB Conc 32.6 g/dL (31.5-36.5); Mean Corpuscular Volume 98 fL (80-100); Mean Platelet Volume 9.1 fL (9.1-12.4); NEUTROPHILS ABSOLUTE AUTO 4.32 K/mm3 (1.96-9.15); NEUTROPHILS PERCENT AUTO 66 % (41-73); Platelet Count 105 K/mm3 (150-400); RDW Coefficient Variation 19.8 % (11.7-14.2); RDW Standard Deviation 71.7 fL (35.1-46.3); Red Blood Cell Count 2.87 M/mm3 (3.80-5.20); White Blood Cell Count 6.58 K/mm3 (4.00-11.30)
[2022-01-01 05:45] LABS: Albumin, Blood 2.7 g/dL (3.4-5.0); Albumin/Globulin Ratio 0.9 (0.8-1.8); Bilirubin, Total 4.7 mg/dL (0.1-1.0); Bun/Creatinine Ratio 21.5 (12.0-20.0); Calcium, Blood 8.3 mg/dL (8.5-10.1); Creatinine, Blood 1.07 mg/dL (0.40-1.00); Potassium, Blood 4.6 mmol/L (3.5-5.5); Total Protein, Blood 5.7 g/dL (6.4-8.2)
--- NOTE | 2022-01-01 06:23 | NUR ---
COMPLAINED OF INCREASED SOB THIS AM, NOTIFIED. RECEIVED ORDER TO MEDICATE WITH AM LASIX.
--- NOTE | 2022-01-01 06:24 | NUR ---
PATIENT COMPLAINED OF INCREASED SOB THIS AM, LABORED BREATHING, RESP AT 23/MIN, RHONCHI/WHEEZING THROUGHOUT LUNGS. RECEIVED ORDER TO MEDICATE WITH AM LASIX.
[2022-01-01 13:29] LABS: Influenza A, PCR NEGATIVE (NEGATIVE); Influenza B, PCR NEGATIVE (NEGATIVE); Resp Syncytial Virus, PCR NEGATIVE (NEGATIVE); SARS-Cov-2 (COVID-19) PCR, MMC NEGATIVE (NEGATIVE)
--- NOTE | 2022-01-01 14:31 | NUR ---
Per chart review with Dr. Alexander, patient appropriate for discharge to [facility]. [facility] to cover wheelchair medical transport fee. Discharge eta is 15:00. Consulted with patient and her nurse regarding discharge plan. Discharge orders, discharge med rec and negative covid test faxed to Dwight Gutiérrez at [facility]. Patient discharge packet placed in patient lock box. Patient agreeable to discharge plan, states she is feeling much better today and denies barriers to discharge.
[2022-01-01] MEDS ORDERED: Enulose10 GM/15 M PO (14:33)
--- NOTE | 2022-01-01 15:05 | NUR ---
PATIENT IS DISCHARGE TO [facility]. PATIENT IS AWKE,ALERT AND ORIENTED , DENIES PAIN. POWERGLIDE AND TELEPACK REMOVED PER PROTOCOL. DISCHARGE PACKET GIVEN TO TRANSPORTER. NO ACUTE DISTRESS NOTED.
== END 2022-01-01 15:02 | DRG 189 ==
LOC: ER 16:03 → MEDS 16:04
PROVIDERS: Family Medicine; Physician Assistant; Student in an Organized Health Care Education/Training Program; ADMIT Internal Medicine
PROC: 0W9930Z Drainage of Right Pleural Cavity with Drainage Device, Percutaneous Approach (ICD-10-PCS; principal; 2021-12-26)
PROC: 0W9930Z Drainage of Right Pleural Cavity with Drainage Device, Percutaneous Approach (ICD-10-PCS; 2021-12-31)
PROC: 0W9930Z Drainage of Right Pleural Cavity with Drainage Device, Percutaneous Approach (ICD-10-PCS; 2022-01-01)
DX: J96.01 Acute respiratory failure with hypoxia (principal); N17.9 Acute kidney failure, unspecified; R18.8 Other ascites; J90 Pleural effusion, not elsewhere classified; D63.8 Anemia in other chronic diseases classified elsewhere; K74.60 Unspecified cirrhosis of liver; E03.9 Hypothyroidism, unspecified; Z20.822 Contact with and (suspected) exposure to COVID-19; E87.70 Fluid overload, unspecified; B19.20 Unspecified viral hepatitis C without hepatic coma; Z88.0 Allergy status to penicillin; Z79.899 Other long term (current) drug therapy
CPT/HCPCS: 0241U; 32555; 36415; 71045; 71046; 76705; 80048; 80053; 82042; 82140; 82945; 83615; 83880; 83986; 84145; 84157; 84484; 85025; 85049; 85060; 85610; 87070; 87205; 88108; 88305; 89051; 93005; 93010; 94640; 96365; 96366; 96375; 97110; 97162; 97166; 97530; 97535; 99285-25; A9270; C1751; G0378; J1940; J3475; J7040; P9046

== ENCOUNTER 2022-01-07 02:35 | Inpatient (IN) | payer MEDICARE ==
[~2022-01-07] VITALS: Ht 162.6 cm; Wt 89.8 kg
[~2022-01-07 02:35] MED LIST changes: +Enulose10 GM/15 M PO
[2022-01-07 03:23] LABS: BASOPHILS ABSOLUTE AUTO 0.03 K/mm3 (0.00-0.23); BASOPHILS PERCENT AUTO 0 % (0-2); EOSINOPHILS ABSOLUTE AUTO 0.32 K/mm3 (0.00-0.68); EOSINOPHILS PERCENT AUTO 4 % (0-6); Hematocrit 29.6 % (33.0-51.0); Hemoglobin 9.6 g/dL (11.5-16.0); IMMATURE GRAN ABSOLUTE AUTO 0.02 K/mm3 (0.00-0.10); IMMATURE GRAN PERCENT AUTO 0 % (0-1); LYMPHOCYTES ABSOLUTE AUTO 0.92 K/mm3 (0.84-5.20); LYMPHOCYTES PERCENT AUTO 12 % (21-46); MONOCYTES ABSOLUTE AUTO 0.87 K/mm3 (0.16-1.47); MONOCYTES PERCENT AUTO 12 % (4-13); Mean Corpuscular HGB 31.6 pg (26.0-34.0); Mean Corpuscular HGB Conc 32.4 g/dL (31.5-36.5); Mean Corpuscular Volume 97 fL (80-100); Mean Platelet Volume 9.2 fL (9.1-12.4); NEUTROPHILS ABSOLUTE AUTO 5.25 K/mm3 (1.96-9.15); NEUTROPHILS PERCENT AUTO 71 % (41-73); Platelet Count 137 K/mm3 (150-400); RDW Coefficient Variation 19.1 % (11.7-14.2); RDW Standard Deviation 68.1 fL (35.1-46.3); Red Blood Cell Count 3.04 M/mm3 (3.80-5.20); White Blood Cell Count 7.41 K/mm3 (4.00-11.30)
[2022-01-07 03:45] LABS: Albumin, Blood 2.7 g/dL (3.4-5.0); Albumin/Globulin Ratio 0.8 (0.8-1.8); Bilirubin, Total 2.9 mg/dL (0.1-1.0); Bun/Creatinine Ratio 18.3 (12.0-20.0); Calcium, Blood 8.2 mg/dL (8.5-10.1); Creatinine, Blood 0.93 mg/dL (0.40-1.00); Globulin, Blood 3.5 g/dL (2.2-4.0); Potassium, Blood 5.1 mmol/L (3.5-5.5); Total Protein, Blood 6.2 g/dL (6.4-8.2)
[2022-01-07 08:36] LABS: Source, Urine Clean Catch
[2022-01-07 08:44] LABS: Blood, Urine 1+ (Neg); Glucose Qualitative, Urine Neg (Neg); Ketones, Urine 1+ (Neg); Leukocyte Esterase, Urine 3+ (Neg); Nitrite, Urine Neg (Neg); Protein, Urine 2+ (Neg); Specific Gravity, Urine 1.025 (1.003-1.022); Urobilinogen, Urine 1+ (Normal)
[2022-01-07 08:45] LABS: Appearance, Urine Hazy (Clear); Bilirubin, Urine 1+ (Neg); Color, Urine Amber (P-Yellow)
[2022-01-07 08:51] LABS: Bacteria Many /hpf; Squamous Epithelial Cells Few /hpf (Few); White Blood Cells, Urine 25-50 /hpf (0-5)
--- NOTE | 2022-01-07 10:05 | NUR ---
PT ARRIVED IN THE UNIT FROM [facility] AT APPROX 0716, PT IS ADMITTED FOR ASCITES/CIRRHOSIS OF THE LIVER. PT ALERT AND ORIENTED X4, ABLE TO TRANSFER TO PCU BED BY MOVING SELF SLOWLY/SCOOTING. VITALS HRR SR 80'S, SOFT BP'S SYSTOLIC 90'S, ON PO MIDODRINE, SATS ABOVE 94% ON RA, ON 2L OF O2 FOR COMFORT PT C/O SOB DUE TO ASCITES/PULMONARY EDEMA. PT FOR THORA/PARA TODAY AWAITING FOR TIME SCHEDULE. PT ALSO HAS BLE 3+-4+ LEGS ELEVATED IN PILLOWS. MEDEIROS PLACED FOR I&O'S, POWERGLIDE PLACED WELL ON YOUNG, DRAWS BLOOD WITH NO ISSUES. PT REFUSED SYNTHROID DOSE THIS AM PT STATED SHE TAKES 112MCG USUALLY, AWAITING FOR PROVIDER VERIFICATION. PT IN BED RESTING AT THIS TIME. CALL LIGHTS IN REACH WILL MONITOR
[2022-01-07] MEDS ORDERED: BUME2 PO (10:39)
[2022-01-07 11:36] LABS: International Normalized Ratio 1.53; Prothrombin Time Results 15.6 Sec (9.7-11.5)
--- NOTE | 2022-01-07 13:36 | NUR ---
Spoke with Primary RN Neris and discussed case. Pt scheduled for procedure this afternoon. Pt resting in bed and denies pain at this time. Pt does report SOB. Pt reports coming from [facility] where she was attempting to get stronger in order to return home. Pt reports living by herself and has a daughter that lives in [place]. Offered supportive listening. Pt is expressing wanting her fluid drained and reports fluid build up is interferring with ability to breath comfortably. Pt agreeable for this RN to visit tomorrow when she is feeling better. Ended visit to allow Pt to rest. Palliative Care will remain available.
--- NOTE | 2022-01-07 18:03 | NUR ---
PT SUMMARY: PT GOT THORACENTESIS DONE TODAY, HAD 1.8L OUT, PLAN TO PROCEED WITH PARACENTESIS TOMORROW. PT VERBALIZED FEELING MUCH BETTER WITH BREATHING AFTER THE PROCEDURE. VITALS HRR REMAINED SINU, BP SYSTOLIC SOFT 70-90'S, MAP ABOVE 55 MIDODRINE ON SCHEDULE, SATS ABOVE 95% ON RA, AFEBRILE. PT TOLERATING DIET, DENIES ANY CHEST PAIN HAS SOME ABD PAIN WITH MOVEMENTS BUT TOLERABLE, REPOSITIONED FOR COMFORT. SYNTHROID DOSE 112MCG ORDERED PER PT'S REQUESTS STATING THIS IS HER NORMAL DOSE AT HOME, FIRST DOSE GIVEN TODAY. MEDEIROS DRAINING DARK URINE VIA GRAVITY, ON ABO FOR UTI. NO OTHER ISSUES REPORTED, WILL REPORT TO ONCOMING SHIFT.
--- NOTE | 2022-01-07 22:36 | NUR ---
PROVIDER AWARE OF CHRONICALLY SOFT B/P, SYSTOLIC 70'S-90'S AND MAP AROUND 50. MIDODRINE DOSE INCREASED FROM 7.5MG TIDD TO 10MG TIDD. PT ASYMPTOMATIC. WILL CONTINUE TO MONITOR.
[2022-01-08 04:42] LABS: BASOPHILS ABSOLUTE AUTO 0.03 K/mm3 (0.00-0.23); BASOPHILS PERCENT AUTO 1 % (0-2); EOSINOPHILS ABSOLUTE AUTO 0.28 K/mm3 (0.00-0.68); EOSINOPHILS PERCENT AUTO 6 % (0-6); Hematocrit 24.9 % (33.0-51.0); Hemoglobin 8.3 g/dL (11.5-16.0); IMMATURE GRAN ABSOLUTE AUTO 0.02 K/mm3 (0.00-0.10); IMMATURE GRAN PERCENT AUTO 0 % (0-1); LYMPHOCYTES ABSOLUTE AUTO 0.83 K/mm3 (0.84-5.20); LYMPHOCYTES PERCENT AUTO 16 % (21-46); MONOCYTES ABSOLUTE AUTO 0.66 K/mm3 (0.16-1.47); MONOCYTES PERCENT AUTO 13 % (4-13); Mean Corpuscular HGB Conc 33.3 g/dL (31.5-36.5); Mean Corpuscular Volume 96 fL (80-100); Mean Platelet Volume 9.2 fL (9.1-12.4); NEUTROPHILS ABSOLUTE AUTO 3.24 K/mm3 (1.96-9.15); NEUTROPHILS PERCENT AUTO 64 % (41-73); Platelet Count 112 K/mm3 (150-400); RDW Coefficient Variation 18.8 % (11.7-14.2); RDW Standard Deviation 66.8 fL (35.1-46.3); Red Blood Cell Count 2.59 M/mm3 (3.80-5.20); White Blood Cell Count 5.06 K/mm3 (4.00-11.30)
[2022-01-08 05:02] LABS: Albumin, Blood 2.1 g/dL (3.4-5.0); Albumin/Globulin Ratio 0.7 (0.8-1.8); Bilirubin, Total 2.9 mg/dL (0.1-1.0); Bun/Creatinine Ratio 18.3 (12.0-20.0); Creatinine, Blood 1.09 mg/dL (0.40-1.00); Potassium, Blood 5.4 mmol/L (3.5-5.5); Total Protein, Blood 5.1 g/dL (6.4-8.2)
--- NOTE | 2022-01-08 05:40 | NUR ---
SHIFT SUMMARY PT ALERT AND ORIENTED X4. SR 70'S-90'S. ON RA SATS OVER 93%. AFEBRILE. BP SOFT. CHRONICALLY SOFT PER PT. HOSPITALIST AWARE, MIDODRINE DOSE INCREASED. PT REMAINS ASYMPTOMATIC. PT REPORTS FEELING LESS SOB SINCE 1.8L FLUID REMOVED DURING THORACENTESIS. MEDEIROS IN PLACE DRAINING DARSHANA URINE TO GRAVITY. YOUNG POWERGLIDE DRAWS BLOOD. PT SLEEPING WITH CALL ALARM AT SIDE. WILL CONTINUE TO MONITOR UNTIL REPORT GIVEN TO DAYSHIFT DARINEL
--- NOTE | 2022-01-08 14:49 | NUR ---
Spoke with Primary RN Pat and discussed case. Pt resting in bed upon arrival. Pt appears dyspneic as evidenced by work of breathing. Pt denies pain at this time. Listened as Pt reports plan to have another thoracentesis today. Assessed Pt's understanding regarding her liver disease. Pt reports considering different medications to treat her hepatitis and in turn she states her liver will turn around. Educated on disease process including trajectory. Pt appears to have poor insight regarding her liver. Pt also reports having never seen GI specialist. Ended visit to allow Pt to rest. Spoke with Dr Cardenas and discussed case. Called and spoke with Pt's PCP medical transcription radiology Giovanny. Giovanny reports no GI referral in her chart past or present. Discussed concerns regarding Pt's insight towards disease process. Giovanny will place a note in Pt's chart for PCP to discuss further with Pt. Palliative Care will remain available.
--- NOTE | 2022-01-08 17:36 | NUR ---
SHIFT SUMMARY PT REMAINED ALERT AND ORIENTED X4. PARACENTISIS PERFORMED THIS AM AT APPROX 0930 AND 5.2L REMOVED PER RADIOLOGIST TECH REPORT. BLOOD PRESSURES HAVE REMAINED SOFT T/O SHIFT, MADE AWARE. PATIENT REPORTED THAT THIS IS NORMAL FOR HER AND REMAINED ASYMPTOMATIC DESPITE LOW PRESSURES. SHE CONTINUED TO DENY PAIN T/O SHIFT INCLUDING CHEST PAIN/PRESSURE. PATIENT REPORTED GETTING NAUSEAOUS EASILY AND REFUSED CERTAIN MEDICATIONS (SEE EMAR) BECAUSE SHE REPORTED THAT THEY "MADE HER VOMIT FOR DAYS" BUT DID NOT REPORT FEELINGS OF NAUSEA OR VOMITTING T/O SHIFT. MEDEIROS CATHETER IS DRAINING WITH GRAVITY DARSHANA COLORED OUTPUT. POWERGLIDE IN RIGHT UPPER EXT. IS SALINE LOCKED. IV IN LEFT CHEST WALL IS SALINE LOCKED. SPO2 REMAINED 95% OR GREATER T/O SHIFT ON ROOM AIR, SHE DOES REPORT FEELINGS OF SHORTNESS OF BREATH AND WAS ADMIT THAT SHE RECIEVED A THORACENTISIS TODAY, DOCTORS CONSULTED WITH PATIENT AND PLAN IS FOR THORACENTISIS TOMORROW 01/09. JAY FROM PALLIATIVE CARE CONSULTED WITH PATIENT TODAY AND REPORTED CONCERNS TO THIS NURSE THAT PATIENT DOES NOT HAVE A REALISTIC PERSPECTIVE REGARDING STATE OF HER DISEASE PROCESS. TELE MONITORING IS IN PLACE, HR IS SINUS RYTHM 80'S. NO OTHER ACUTE CHANGES NOTED. WILL CONTINUE TO MONITOR UNTIL REPORT GIVEN. CALL LIGHT IN REACH.
--- NOTE | 2022-01-09 05:16 | NUR ---
SHIFT SUMMARY PT ALERT AND ORIENTED X4. HR SR 80'S AND 90'S. AFEBRILE. SATS OVER 93% ON RA. DYSPNEA WITH EXERTION. BP CONTINUES TO BE SOFT, 70'S AND 80'S SYSTOLIC. PT REMAINS ASYMPTOMATIC. LEAKAGE FROM PARACENTESIS SITE EARLY IN SHIFT, BANDAGE REPLACED. NOW C/D/I. ASLEEP MOST OF NIGHT. MEDEIROS IN PLACE DRAINING DARSHANA COLORED URINE TO GRAVITY. YOUNG PG SALINE LOCKED, DRAWS BLOOD. PT IN BED RESTING WITH CALL ALARM AT SIDE. WILL CONTINUE TO MONITOR UNTIL REPORT GIVEN TO MAN TENA.
--- NOTE | 2022-01-09 09:16 | NUR ---
CARE ASSUMPTION PATIENT IS ALERT AND OREINTED X4. PERRLA. NEURO IS INTACT. PATIENT HAS CHRONIC HYPOTENSION. PATIENT IS ASYMPOTOMATIC WITH LOW BP. PATIENT HAS +2 EDEMA IN LOWER EXTREMITEIS BILATERALLY. PATIENT REPORTS NO CHEST PAIN/PRESSURE, PAIN, OR NUMBNESS OR TINGLING. PATIENT REPORTS SHORTNESS OF BREATH WITH EXERTION. LUNG SOUNDS ARE COARSE SOUNDING THROUGHOUT. PATIENT HAS SCATTERED BRUSING AND SITE FROM THORACENTESIS, CLEAN DRY AND INTACT. PATIENT ABD HAS ACITIES. SEE SHIFT ASSESSMENT FOR FULL DETAILS. PATIENT MEDEIROS CATH IS DRAINING DARSHANA COLOR URINE WITH GRAVITY. PATIENT WILL HAVE A THORACENTESIS DONE THIS AFTERNOON. THIS RN PROVIDED THERAPEUTIC COMMUNICATION AND ACTIVE LISTENING WHEN ASKING HOW THE PATIENT IS DOING, PROVIDED EDUCATION, AND ASKING IF THE PATIENT HAS ANY QUESTIONS OR CONCERNS. CALL LIGHT WITHIN REACH. WILL CONTINUE TO MONITOR AND PROVIDE CARE.
--- NOTE | 2022-01-09 12:40 | NUR ---
UPDATE MD TINEO, GI DOC, CAME IN TO SEE PATIENT THIS AFTERNOON. RIVKA REVIEWED THE RECORDS FROM [facility], AND THIS RN PUT IN A REQUEST FOR THE RECORD FROM [facility] THAT SHOW THE PATIENTS BANDING OF VARICIES. NO CHANGE IN PLAN OF CARE AT THIS TIME. FOR FURTHER DETAILS REFER TO RIVKA NOTE.
--- NOTE | 2022-01-09 17:58 | NUR ---
SHIFT SUMMARY PATIENT NEURO REMAINS INTACT. PATIENT BP HAS BEEN SOFT THROUGHOUT THE SHIFT, BUT PATIENT STATES THIS IS NORMAL. PATIENT HAD A THORACENTESIS DONE AND REMVOED 1.8L OF FLUID. BANDAIDE IS IN PLACE AND IS IT CLEAN DRY AND INTACT. NO ACUTE CHANGES THIS SHIFT. WILL CONTINUE TO MONITOR AND PROVIDE CARE UNTIL HAND OFF WITH NEXT SHIFT.
--- NOTE | 2022-01-10 06:30 | NUR ---
SHIFT SUMMARY PT IS ALERT AND ORIENTED. THERE HAVE BEEN NO ACUTE CHANGES. VITAL SIGNS ARE STABLE BP READINGS BY MANUAL BP CUFF HAVE BEEN SOFT, PT STS NORMAL. PT IS ON ROOM AIR AND DENIES SOB. PT DENIES CHEST PAIN. PT HAS REFUSED SOME SCHEDUALED MEDS DUE TO FEELING NAUSEA IN THE PAST. MEDEIROS IS IN PLACE AND DRAINING. PT HAD AN INCONT BM LAST NIGHT. CALL LIGHT IS WITHIN REACH.
[2022-01-10 08:09] LABS: HBSAG SCREEN Negative (Negative)
--- NOTE | 2022-01-10 09:34 | NUR ---
CARE ASSUMPTION PATIENT IS ALERT AND ORIENTED X4. NEURO IS INTACT. PERRLA. PATIENT HAS CHRONICLY LOW BP. PATIENT REPORTS NO CHEST PAIN/PRESSURE. STRONG RADIAL PULSES. +2 EDEMA. PATIENT ABD HAS ASCITIES AND IS DISTENDED. PATIENT LUNG SOUNDS CLEAR/DIM. SEE SHIFT ASSESSMENT FOR FULL DETAILS. PATIENT HAS NO QUESTIONS OR CONCERNS THIS MORNING AND UNDERSTANDS PLAN OF CARE. CALL LIGHT WITHIN REACH AND BED IN LOWEST POSITION. WILL CONTINUE TO MONITOR AND PROVIDE CARE.
--- NOTE | 2022-01-10 17:35 | NUR ---
SHIFT SUMMARY PATIENT NEURO REMAINS INTACT. PATIENT MEDEIROS CATH REMOVED AND PATIENT VOIDED SINCE REMOVAL. NO ACUTE CHANGES THIS SHIFT. CALL LIGHT WITHIN REACH AND BED IN LOWEST POSITION. WILL CONTINUE TO MONITOR AND PROVIDE CARE UNTIL HAND OFF WITH NEXT SHIFT.
[2022-01-11 04:34] LABS: BASOPHILS ABSOLUTE AUTO 0.02 K/mm3 (0.00-0.23); BASOPHILS PERCENT AUTO 0 % (0-2); EOSINOPHILS ABSOLUTE AUTO 0.31 K/mm3 (0.00-0.68); EOSINOPHILS PERCENT AUTO 7 % (0-6); Hematocrit 24.8 % (33.0-51.0); Hemoglobin 8.1 g/dL (11.5-16.0); IMMATURE GRAN ABSOLUTE AUTO 0.01 K/mm3 (0.00-0.10); IMMATURE GRAN PERCENT AUTO 0 % (0-1); LYMPHOCYTES ABSOLUTE AUTO 0.73 K/mm3 (0.84-5.20); LYMPHOCYTES PERCENT AUTO 16 % (21-46); MONOCYTES ABSOLUTE AUTO 0.62 K/mm3 (0.16-1.47); MONOCYTES PERCENT AUTO 14 % (4-13); Mean Corpuscular HGB 31.8 pg (26.0-34.0); Mean Corpuscular HGB Conc 32.7 g/dL (31.5-36.5); Mean Corpuscular Volume 97 fL (80-100); NEUTROPHILS ABSOLUTE AUTO 2.88 K/mm3 (1.96-9.15); NEUTROPHILS PERCENT AUTO 63 % (41-73); Platelet Count 108 K/mm3 (150-400); RDW Standard Deviation 68.3 fL (35.1-46.3); Red Blood Cell Count 2.55 M/mm3 (3.80-5.20); White Blood Cell Count 4.57 K/mm3 (4.00-11.30)
[2022-01-11 04:50] LABS: International Normalized Ratio 1.62; Prothrombin Time Results 16.5 Sec (9.7-11.5)
[2022-01-11 04:53] LABS: Albumin, Blood 2.5 g/dL (3.4-5.0); Bilirubin, Total 2.1 mg/dL (0.1-1.0); Bun/Creatinine Ratio 15.5 (12.0-20.0); Calcium, Blood 7.8 mg/dL (8.5-10.1); Creatinine, Blood 1.29 mg/dL (0.40-1.00); Globulin, Blood 2.4 g/dL (2.2-4.0); Total Protein, Blood 4.9 g/dL (6.4-8.2)
--- NOTE | 2022-01-11 05:45 | NUR ---
SHIFT SUMMARY PT IS ALERT AND ORIENTED X4. THERE HAVE BEEN NO ACUTE CHANGES T/O THE NIGHT. VITAL SIGNS ARE STABLE AND SATS ARE ABOVE 92% ON ROOM AIR. MANUAL BP HAS BEEN TAKEN DUE TO SOFT BP'S WHICH PT STS ARE NORMAL. PT HAS REPORTED FEELING NAUSEOUS T/O THE NIGHT BUT DOES NOT WANT TO BE TREATED WITH MEDICATION. PT HAS BEEN ABLE TO GET UP TO BSC AND IS URINATING WELL. CALL LIGHT IS WITHIN REACH.
--- NOTE | 2022-01-11 08:23 | NUR ---
AM NOTE: ALERT AND ORIENTED X4. DENIES NUMBNESS/TINGLING. OVERALL WEAK. STATES SHE NEEDS HELP WHEN WALKING AND GETTING OUT OF BED. ONE PERSON ASSIST TO BSC. ON ROOM AIR SATING ABOVE 94%. DENIES SOB. INCREASED RR WITH EXCESSIVE TALKING AND MOVING AROUND IN BED. LUNGS SOUNDING CLEAR. TELE SHOWING SINUS RHYTM WITH HR 80'S. SOFT BP, PATIENT STATES THIS IS CHRONIC. DENIES DIZZINESS. MORN MEDS GIVEN. MANUAL BLOOD PRESSURES BEING TAKEN. DENIES CHEST PAIN/PRESSURE. DENIES ABDOMINAL PAIN. COMPLAINS OF SLIGHT NAUSEA THIS AM, DENIES NEED FOR MEDICATION. STATES EATING WILL HELP. EATING BREAKFAST AT THIS TIME. ABDOMEN DISTENDED BUT IMPROVING PER PATIENT. RIGHT LOWER QUADRANT DRAINAGE FROM PARACENTESIS, DRESSING IN PLACE - C/D/I. SKIN OVERALL FRAGILE, BRUISING SCATTERED THROUGHOUT. USING BSC WITH ASSISTANCE. SKEPTICAL ABOUT MEDICATIONS AND DOES NOT WANT TO TAKE PROBIOTICS. DENIES NEEDS AT THIS TIME. WILL CONTINUE TO MONITOR, CALL LIGHT IN REACH.
--- NOTE | 2022-01-11 09:06 | NUR ---
UPDATE: PATIENT ABLE TO EAT BREAKFAST. STARTED TO FEEL NAUSEAOUS. LARGE EMISIS. PATIENT OFFERED ANTINAUSEA MEDICATION. DENIES MEDICATION. DENIES NEED FOR ANY COLD TOWELS OR OTHER COMFORTS. STATES SHE FEELS BETTER AFTER THROWING UP.
--- NOTE | 2022-01-11 18:12 | NUR ---
SHIFT SUMMARY: NO ACUTE CHANGES. SEE PREVIOUS NOTES. MEDICAL STATUS NO TELE, HR 80'S. BP REMAINS SOFT WITH MANUAL BLOOD PRESSURE CUFF. REMAINS ON ROOM AIR. SOB WHEN UP TO BSC. PATIENT ABLE TO TURN SELF IN BED. USING CALL LIGHT. COMPLAINS OF SLIGHT NAUSEA THROUGHOUT SHIFT. MANY INTERVENTIONS OFFERED TO PATIENT INCLUDING MEDICATIONS, COLD OR HEAT THERAPY, REPOSITIONING, DIFFERENT ITEMS TO EAT OR DRINK. PATIENT DENIES ALL INTERVENTIONS AND STATES SHE DOES NOT NEED ANYTHING TO HELP WITH NAUSEA AND THAT IT WILL "JUST GO AWAY". ONE EPISODE OF EMESIS THIS AM, SEE PREVIOUS NOTE. UP TO BSC TO URINATE, DARK DARSHANA URINE. SLEEPING ON AND OFF ALL DAY. DENIES BED BATH OR GETTING UP IN CHAIR. PATIENT PLANS TO WORK WITH PHYSICAL THERAPY TOMORROW. DENIES NEEDS AT THIS TIME. EATING TOMATO SOUP. WILL CONTINUE TO MONITOR AND REPORT OFF. CALL LIGHT IN REACH.
--- NOTE | 2022-01-12 05:31 | NUR ---
PATIENT REMAINS IN BED ALERT AND ORIENTED TIMES 4. NOTED WITH GENERALIZED WEAKNESS TO LOWER EXTREMITIES. STANDBY ASSIST TO AND FROM BEDSIDE COMMODE. BLOOD PRESSURE SYSTOLIC 90'S REMY. RESP WITHIN NORMAL REACH. BRUISEN NOTED ON EXTREMITIES, NO OPEN AREAS NOTED. PATIENT DENIES PAIN OR DISCOMFORT. SAFETY MAINATAINED AND CALL LIGHT WITHIN REACH. PATIENT TURNED AND REPOSITION Q 2 HOURS AND NEEDED. REPORT GIVEN ON PATIENT STATUS TO ONCOMING NURSE CONCERNING PATIENT CARE.
--- NOTE | 2022-01-12 18:06 | NUR ---
SHIFT SUMMARY PT A&Ox4. PT RESTING IN BED UP WITH 1 PERSON ASSIST. PT DENIES PAIN, CHEST PAIN/PRESSURE, DIZZINESS AND NUMB/TINGLING. PT STATES "ALWAYS SOB" BUT HAS IMPORVED SINCE ADMISSION, SPO2 >90% ON RA. PT NAUSEA INTERMITTENTLY T/O SHIFT, REFUSING ANTIEMETICS. DR HUDSON AT BEDSIDE THIS AFTERNOON FOR PARACENTESIS, 6.25 L OFF; NEW ORDER FOR ALBUMIN AND LR BOLUS. BP SOFT T/O SHIFT. HELD LASIX THIS EVENING. OTHER VSS. NO OTHER ACUTE CHANGES NOTED. WILL CONTINUE TO MONITOR UNTIL REPORT GIVEN TO ONCOMING RN.
--- NOTE | 2022-01-13 02:02 | NUR ---
PATIENT REMAINS IN BED ON ASSESSMENT ALERT AND ORIENTED TIMES 4. DENIES ANY PAIN AND DISCOMFORT N ASSESMENT.6.25 FLUIDS WAS REMOVED FROM PATIENT SITE OF ENTRY WAS ASSESSED AND DRSG IN PLACED, MONITORING SITE FOR DRAINAGE. ABDOMEN SOFT ON PALPATION BOWEL SOUNDS PATENT. DISCOLORATION NOTED ON EXTREMITIES NO OPEN AREASNOTED.PENDING CXR IN A.M. ONGOING MONITORING, CALL LIGHT WITHIN REACH.
[2022-01-13 05:46] LABS: BASOPHILS ABSOLUTE AUTO 0.03 K/mm3 (0.00-0.23); BASOPHILS PERCENT AUTO 1 % (0-2); EOSINOPHILS ABSOLUTE AUTO 0.25 K/mm3 (0.00-0.68); EOSINOPHILS PERCENT AUTO 7 % (0-6); Hematocrit 23.7 % (33.0-51.0); Hemoglobin 7.8 g/dL (11.5-16.0); IMMATURE GRAN PERCENT AUTO 0 % (0-1); LYMPHOCYTES ABSOLUTE AUTO 0.65 K/mm3 (0.84-5.20); LYMPHOCYTES PERCENT AUTO 18 % (21-46); MONOCYTES ABSOLUTE AUTO 0.63 K/mm3 (0.16-1.47); MONOCYTES PERCENT AUTO 18 % (4-13); Mean Corpuscular HGB 31.8 pg (26.0-34.0); Mean Corpuscular HGB Conc 32.9 g/dL (31.5-36.5); Mean Corpuscular Volume 97 fL (80-100); NEUTROPHILS ABSOLUTE AUTO 2.02 K/mm3 (1.96-9.15); NEUTROPHILS PERCENT AUTO 56 % (41-73); Platelet Count 86 K/mm3 (150-400); RDW Coefficient Variation 18.9 % (11.7-14.2); RDW Standard Deviation 66.8 fL (35.1-46.3); Red Blood Cell Count 2.45 M/mm3 (3.80-5.20); White Blood Cell Count 3.58 K/mm3 (4.00-11.30)
[2022-01-13 05:57] LABS: Albumin, Blood 2.7 g/dL (3.4-5.0); Albumin/Globulin Ratio 1.2 (0.8-1.8); Bilirubin, Total 2.4 mg/dL (0.1-1.0); Bun/Creatinine Ratio 19.8 (12.0-20.0); Creatinine, Blood 1.26 mg/dL (0.40-1.00); Globulin, Blood 2.2 g/dL (2.2-4.0); Potassium, Blood 4.8 mmol/L (3.5-5.5); Total Protein, Blood 4.9 g/dL (6.4-8.2)
[2022-01-13 06:04] LABS: International Normalized Ratio 1.69; Prothrombin Time Results 17.1 Sec (9.7-11.5)
--- NOTE | 2022-01-13 17:05 | NUR ---
SHIFT SUMMARY PT A&Ox4. UP WITH 1 PERSON ASSIST IN ROOM. PT DENIES PAIN, CHEST PAIN, AND DIZZINESS T/O SHIFT. PT SOB WITH ACTIVITY, SPO2 >90% ON RA. PT REPORTING NAUSEA THIS AM, REFUSING ANTIEMETICS. PT STATES NASUEA IS FROM PO ANTIBIOTICS AND REFUSING MEDCIATIONS THIS AM; NOTIFIED DR TRISTAN MD PLACED NEW ORDERS FOR IV ANTIBIOTICS. PT BP SOFT, USING MANUAL BP VUFF T/O SHIFT. OTHER VSS. NO OTHER ACUTE CHANGES NOTED. WILL CONTINUE TO MONITOR UNTIL REPORT GIVEN TO ONCOMING RN.
--- NOTE | 2022-01-14 03:34 | NUR ---
PATIENT REMAINS IN BED DENIES PAIN ON ASSESSMENT. PATIENT ALERT AND ORIENTED TIMES 4 CAN MAKE HER NEEDS KNOWN. LUNGS SOUNDS CLEAR BILATERALLY AND BOWEL SOUNDS PATENT. PATIENT NOTED WITH BILATERAL EXTREMITIES WEAKNESS. STANDBY ASSIST NEEDED.PATIENT BLOOD PRESSURE NOTED ON ASSESSMENT 90/58. CONTINUE TO MONITOR PATIENT CONDITION. CALL LIGHT WITHIN REACH. ONGOING MONITORING.
[2022-01-14 04:36] LABS: BASOPHILS ABSOLUTE AUTO 0.02 K/mm3 (0.00-0.23); BASOPHILS PERCENT AUTO 1 % (0-2); EOSINOPHILS ABSOLUTE AUTO 0.23 K/mm3 (0.00-0.68); EOSINOPHILS PERCENT AUTO 7 % (0-6); Hematocrit 23.6 % (33.0-51.0); Hemoglobin 7.7 g/dL (11.5-16.0); IMMATURE GRAN ABSOLUTE AUTO 0.01 K/mm3 (0.00-0.10); IMMATURE GRAN PERCENT AUTO 0 % (0-1); LYMPHOCYTES ABSOLUTE AUTO 0.68 K/mm3 (0.84-5.20); LYMPHOCYTES PERCENT AUTO 20 % (21-46); MONOCYTES ABSOLUTE AUTO 0.65 K/mm3 (0.16-1.47); MONOCYTES PERCENT AUTO 19 % (4-13); Mean Corpuscular HGB 31.6 pg (26.0-34.0); Mean Corpuscular HGB Conc 32.6 g/dL (31.5-36.5); Mean Corpuscular Volume 97 fL (80-100); Mean Platelet Volume 9.4 fL (9.1-12.4); NEUTROPHILS ABSOLUTE AUTO 1.89 K/mm3 (1.96-9.15); NEUTROPHILS PERCENT AUTO 54 % (41-73); Platelet Count 90 K/mm3 (150-400); RDW Coefficient Variation 18.7 % (11.7-14.2); RDW Standard Deviation 66.9 fL (35.1-46.3); Red Blood Cell Count 2.44 M/mm3 (3.80-5.20); White Blood Cell Count 3.48 K/mm3 (4.00-11.30)
[2022-01-14 04:56] LABS: Albumin, Blood 2.7 g/dL (3.4-5.0); Albumin/Globulin Ratio 1.2 (0.8-1.8); Bilirubin, Total 1.8 mg/dL (0.1-1.0); Calcium, Blood 7.9 mg/dL (8.5-10.1); Creatinine, Blood 1.3 mg/dL (0.40-1.00); Globulin, Blood 2.2 g/dL (2.2-4.0); Potassium, Blood 5.1 mmol/L (3.5-5.5); Total Protein, Blood 4.9 g/dL (6.4-8.2)
--- NOTE | 2022-01-14 17:08 | NUR ---
SHIFT SUMMARY PT A&Ox4. PT UP IN ROOM WITH 1 PERSON ASSIST. PT RESTING IN BED FOR MAJOIRTY OF SHIFT. PT DENIES PAIN, CHEST PAIN, NAUSEA AND DIZZINESS T/O SHIFT. PT SOB IS "MUCH IMPROVED", SPO2 >90% ON RA. PT RECEIVING IV ANTIBIOTICS. BP REMAINS SOFT, PT RECEIVING MIDODRINE. OTHER VSS. NO OTHER ACUTE CHANGES NOTED. WILL CONTINUE TO MONITOR.
[2022-01-14 19:06] LABS: HCV LOG10 5.378 (.); HEPATITIS C GENOTYPE 1a (.); HEPATITIS C QUANTITATION 239000 IU/mL (.)
--- NOTE | 2022-01-15 04:47 | NUR ---
PATIENT REMAINS IN BED ALERT AND ORIENTED TIMES 4 CAN ALL NEEDS KNOWN. ASSESSED AND DENIES PAIN AT THE TIME OF ASSESSMENT. LUNDS SOUNDS CLEAR BILATERALLY NOTED BLOOD PRESSURE NOTED SOFT, PATIENT SHOWS NO SIGN. CONTINUE TO MONITOR PATIENT CONDITION. CALL LIGHT WITHIN REACH. SAFETY MAINTAINED.
[2022-01-15 05:31] LABS: BASOPHILS ABSOLUTE AUTO 0.03 K/mm3 (0.00-0.23); BASOPHILS PERCENT AUTO 1 % (0-2); EOSINOPHILS ABSOLUTE AUTO 0.21 K/mm3 (0.00-0.68); EOSINOPHILS PERCENT AUTO 6 % (0-6); Hematocrit 23.5 % (33.0-51.0); Hemoglobin 7.6 g/dL (11.5-16.0); IMMATURE GRAN ABSOLUTE AUTO 0.01 K/mm3 (0.00-0.10); IMMATURE GRAN PERCENT AUTO 0 % (0-1); LYMPHOCYTES ABSOLUTE AUTO 0.68 K/mm3 (0.84-5.20); LYMPHOCYTES PERCENT AUTO 19 % (21-46); MONOCYTES ABSOLUTE AUTO 0.74 K/mm3 (0.16-1.47); MONOCYTES PERCENT AUTO 20 % (4-13); Mean Corpuscular HGB 31.5 pg (26.0-34.0); Mean Corpuscular HGB Conc 32.3 g/dL (31.5-36.5); Mean Corpuscular Volume 98 fL (80-100); Mean Platelet Volume 9.8 fL (9.1-12.4); NEUTROPHILS ABSOLUTE AUTO 1.96 K/mm3 (1.96-9.15); NEUTROPHILS PERCENT AUTO 54 % (41-73); Platelet Count 85 K/mm3 (150-400); RDW Coefficient Variation 18.6 % (11.7-14.2); RDW Standard Deviation 67.7 fL (35.1-46.3); Red Blood Cell Count 2.41 M/mm3 (3.80-5.20); White Blood Cell Count 3.63 K/mm3 (4.00-11.30)
[2022-01-15 05:49] LABS: Albumin, Blood 2.4 g/dL (3.4-5.0); Bilirubin, Total 1.6 mg/dL (0.1-1.0); Bun/Creatinine Ratio 19.3 (12.0-20.0); Calcium, Blood 7.6 mg/dL (8.5-10.1); Creatinine, Blood 1.35 mg/dL (0.40-1.00); Globulin, Blood 2.4 g/dL (2.2-4.0); Potassium, Blood 4.8 mmol/L (3.5-5.5); Total Protein, Blood 4.8 g/dL (6.4-8.2)
--- NOTE | 2022-01-15 08:14 | NUR ---
Rounded with Dr. Burroughs in the pt's room.
[2022-01-15] MEDS ORDERED: FURO20 PO (12:11)
[2022-01-15] MEDS ORDERED: LEVSOD112 PO (12:12)
[2022-01-15] MEDS ORDERED: MIDO5 PO (12:12)
--- NOTE | 2022-01-15 12:33 | NUR ---
Reviewed with the patient the instructions and plan for discharge, including prescriptions and plan for paracentesis with [facility] next week. [facility] and spoke with the patient on the phone while I was in the room. The home health nurse will be coming out to her home tomorrow, she said.
--- NOTE | 2022-01-16 07:47 | NUR ---
Per Dr. Burroughs discharge appropriate. Patient does not oppose discharge. Patient discharged home with Home Health. Patient used [facility] in the past. [facility] was notified of discharge. Date of discharge: 01/15/2022 Date of admission: 01/08/2022 Transportation provided by: Daughter Location/Residence: [address] [place] DME Ordered: None needed (patient has DME) Follow-ups needed: [facility] will contact patient to schedule hospital follow-up visit. Reinforced need to attend follow-up with option of telehealth appointment if can't make in-office visit. Provider/PCP: Dr. Ubaldo Bernal Specialty: Paracentesis referral faxed/patient case created in [facility] electronic chart for follow-up on paracentesis. Verified clinic received fax and will contact patient to schedule a visit for next week. Confirmed numbers: Patient [phone] Daughter Ericka [phone] Comment: Explained to patient to contact PCP if any questions regarding medication management, social service needs, and if condition worsens go to Urgent Care/ER. No barriers to discharge. Patient has support network. Patient given information on community resources to include caregiving list. Patient stated she was contacted by a caregiving agency and they will initiate services Wednesday.
== END 2022-01-15 13:20 | disposition home or self-care (01) | DRG 432 ==
LOC: ER 02:35 → PCU 02:36
PROVIDERS: Family Medicine; Internal Medicine; Internal Medicine Critical Care Medicine; Internal Medicine Gastroenterology; Student in an Organized Health Care Education/Training Program; ADMIT Family Medicine
PROC: 0W993ZZ Drainage of Right Pleural Cavity, Percutaneous Approach (ICD-10-PCS; 2022-01-07)
PROC: 0W9G3ZZ Drainage of Peritoneal Cavity, Percutaneous Approach (ICD-10-PCS; principal; 2022-01-08)
PROC: 0W993ZZ Drainage of Right Pleural Cavity, Percutaneous Approach (ICD-10-PCS; 2022-01-09)
PROC: 3E03329 Introduction of Other Anti-infective into Peripheral Vein, Percutaneous Approach (ICD-10-PCS; 2022-01-10)
DX: K74.60 Unspecified cirrhosis of liver (principal); J96.01 Acute respiratory failure with hypoxia; J18.9 Pneumonia, unspecified organism; J90 Pleural effusion, not elsewhere classified; N39.0 Urinary tract infection, site not specified; E03.9 Hypothyroidism, unspecified; I10 Essential (primary) hypertension; D63.8 Anemia in other chronic diseases classified elsewhere; B19.20 Unspecified viral hepatitis C without hepatic coma; N83.209 Unspecified ovarian cyst, unspecified side; Z88.0 Allergy status to penicillin; Z90.49 Acquired absence of other specified parts of digestive tract; Z87.891 Personal history of nicotine dependence; Z79.899 Other long term (current) drug therapy; I95.9 Hypotension, unspecified; B95.2 Enterococcus as the cause of diseases classified elsewhere
CPT/HCPCS: 32555; 36415; 49083; 51702; 71045; 71046; 76700; 76856; 80053; 81001; 82105; 82140; 83690; 83880; 84145; 84484; 85025; 85610; 85730; 86704; 87077; 87086; 87186; 87340; 87522; 87902; 93005; 93010; 94667; 94668; 94762; 96365; 96366; 96376; 97110; 97116; 97162; 99285-25; A9270; C1751; G0378; J1956; J7040; J7120; P9046

== ENCOUNTER 2022-02-03 09:30 | Day surgery (SDC) | payer SELFPAY ==
[~2022-02-03 09:30] MED LIST changes: +BUME2 PO; +FURO20 PO; +LEVSOD112 PO; +MIDO5 PO
== END 2022-02-03 22:53 | disposition home or self-care (01) ==
LOC: US 09:30
DX: R18.8 Other ascites (principal)
CPT/HCPCS: 49083

== ENCOUNTER 2022-02-04 10:48 | Observation (INO) | payer OTHER ==
[~2022-02-04] VITALS: Ht 160 cm; Wt 83.7 kg
[2022-02-04 11:50] LABS: BASOPHILS ABSOLUTE AUTO 0.02 K/mm3 (0.00-0.23); BASOPHILS PERCENT AUTO 0 % (0-2); EOSINOPHILS ABSOLUTE AUTO 0.18 K/mm3 (0.00-0.68); EOSINOPHILS PERCENT AUTO 3 % (0-6); Hematocrit 28.5 % (33.0-51.0); IMMATURE GRAN ABSOLUTE AUTO 0.02 K/mm3 (0.00-0.10); IMMATURE GRAN PERCENT AUTO 0 % (0-1); LYMPHOCYTES ABSOLUTE AUTO 0.76 K/mm3 (0.84-5.20); LYMPHOCYTES PERCENT AUTO 12 % (21-46); MONOCYTES ABSOLUTE AUTO 0.66 K/mm3 (0.16-1.47); MONOCYTES PERCENT AUTO 10 % (4-13); Mean Corpuscular HGB 30.5 pg (26.0-34.0); Mean Corpuscular HGB Conc 31.6 g/dL (31.5-36.5); Mean Corpuscular Volume 97 fL (80-100); Mean Platelet Volume 9.8 fL (9.1-12.4); NEUTROPHILS ABSOLUTE AUTO 4.83 K/mm3 (1.96-9.15); NEUTROPHILS PERCENT AUTO 75 % (41-73); Platelet Count 137 K/mm3 (150-400); RDW Coefficient Variation 17.6 % (11.7-14.2); RDW Standard Deviation 62.4 fL (35.1-46.3); Red Blood Cell Count 2.95 M/mm3 (3.80-5.20); White Blood Cell Count 6.47 K/mm3 (4.00-11.30)
[2022-02-04 12:07] LABS: International Normalized Ratio 1.42; Prothrombin Time Results 14.6 Sec (9.7-11.5)
[2022-02-04 12:24] LABS: Albumin, Blood 2.6 g/dL (3.4-5.0); Albumin/Globulin Ratio 0.8 (0.8-1.8); Bun/Creatinine Ratio 26.6 (12.0-20.0); Calcium, Blood 8.3 mg/dL (8.5-10.1); Creatinine, Blood 1.09 mg/dL (0.40-1.00); Globulin, Blood 3.4 g/dL (2.2-4.0); Potassium, Blood 4.6 mmol/L (3.5-5.5)
[2022-02-05 04:06] LABS: Albumin/Globulin Ratio 1.2 (0.8-1.8); Bilirubin, Total 2.5 mg/dL (0.1-1.0); Bun/Creatinine Ratio 25.9 (12.0-20.0); Calcium, Blood 8.1 mg/dL (8.5-10.1); Creatinine, Blood 1.12 mg/dL (0.40-1.00); Globulin, Blood 2.4 g/dL (2.2-4.0); Potassium, Blood 3.9 mmol/L (3.5-5.5); Total Protein, Blood 5.4 g/dL (6.4-8.2)
--- NOTE | 2022-02-05 06:10 | NUR ---
Recieved from ER and admission completed. SBP remains 75-90 and asymptomatic. Has dyspnea with exertion. Lungs with increased rhonchi through night. Sats dropped to 89-90% on room air, placed on 2L NC. no distress at this time
--- NOTE | 2022-02-05 07:15 | NUR ---
ASSUMPTION OF CARE PT IS AWAKE, PLAYING A GAME ON PHONE. SHE IS A&O, VERY TALKATIVE. SHE STS SHE FEELS MUCH BETTER TODAY AND WOULD LIKE TO GO HOME. HER DAUGHTER IS AVAILABLE TO PICK HER UP. SHE REMAINS SALINE LOCKED. SMALL CUP OF WATER AT BEDSIDE WITH FLUID RESTRICTION OF 1500ML. PT REMAINS HYPOTENSIVE WITH SBP 70S BUT ASYMPTOMATIC. PT STS THIS IS NORMAL FOR HER. ABDOMEN IS DISTENDED, PT STS IT IS ALMOST BACK TO "NORMAL". SEE SHIFT ASSESSMENT.
--- NOTE | 2022-02-05 09:13 | NUR ---
PLAN FOR DISCHARGE DR GREEN AT BEDSIDE FOR ROUNDING. PLAN TO D/C TODAY. PT'S DAUGHTER WILL BE AVAILABLE TO DIRECTOR FUNDS DEVELOPMENT PT.
[2022-02-05] MEDS ORDERED: Aldactone50 MG PO (11:26)
--- NOTE | 2022-02-05 12:10 | NUR ---
DISCHARGE PT PROVIDED DISCHARGE INSTRUCTIONS AND EDUCATION REGARDING FOLLOW UP CARE AND MEDICATIONS. PT VERBALIZES UNDERSTANDING. PT DRESSED SELF WITH VERY MINIMAL ASSISTANCE, TRANSFERRED SELF TO WHEELCHAIR. ALL BELONGINGS GATHERED AND GIVEN TO PT. TAKEN OUT VIA WHEELCHAIR BY PCT. PT DENIES ADDITIONAL NEEDS OR QUESTIONS AND PT LEFT DEPARTMENT AT THIS TIME. DAUGHTER GUNNER PICKING UP PT.
== END 2022-02-05 12:51 | disposition home or self-care (01) ==
LOC: ER 10:48 → ICUW 10:49
PROVIDERS: Physician Assistant; ADMIT Internal Medicine
DX: I95.9 Hypotension, unspecified (principal); E03.9 Hypothyroidism, unspecified; J94.8 Other specified pleural conditions; J98.11 Atelectasis; E87.70 Fluid overload, unspecified; J96.91 Respiratory failure, unspecified with hypoxia; R18.8 Other ascites; K74.60 Unspecified cirrhosis of liver; D63.8 Anemia in other chronic diseases classified elsewhere; B19.20 Unspecified viral hepatitis C without hepatic coma; Z88.0 Allergy status to penicillin
CPT/HCPCS: 32555; 36415; 49083; 71045; 71046; 76705; 80053; 85025; 85610; 96365; 96366; 96375; 99285-25; A9270; J1650; J1940; P9046

== ENCOUNTER 2022-02-11 10:52 | Emergency (ER) | payer SELFPAY ==
[~2022-02-11] VITALS: Ht 160 cm; Wt 79.4 kg
[~2022-02-11 10:52] MED LIST changes: +Aldactone50 MG PO
[2022-02-11 11:37] LABS: BASOPHILS ABSOLUTE AUTO 0.03 K/mm3 (0.00-0.23); BASOPHILS PERCENT AUTO 0 % (0-2); EOSINOPHILS ABSOLUTE AUTO 0.16 K/mm3 (0.00-0.68); EOSINOPHILS PERCENT AUTO 2 % (0-6); Hematocrit 30.3 % (33.0-51.0); Hemoglobin 9.9 g/dL (11.5-16.0); IMMATURE GRAN ABSOLUTE AUTO 0.03 K/mm3 (0.00-0.10); IMMATURE GRAN PERCENT AUTO 0 % (0-1); LYMPHOCYTES ABSOLUTE AUTO 0.72 K/mm3 (0.84-5.20); LYMPHOCYTES PERCENT AUTO 9 % (21-46); MONOCYTES ABSOLUTE AUTO 1.03 K/mm3 (0.16-1.47); MONOCYTES PERCENT AUTO 13 % (4-13); Mean Corpuscular HGB 29.9 pg (26.0-34.0); Mean Corpuscular HGB Conc 32.7 g/dL (31.5-36.5); Mean Corpuscular Volume 92 fL (80-100); Mean Platelet Volume 10.7 fL (9.1-12.4); NEUTROPHILS ABSOLUTE AUTO 6.05 K/mm3 (1.96-9.15); NEUTROPHILS PERCENT AUTO 75 % (41-73); Platelet Count 226 K/mm3 (150-400); RDW Coefficient Variation 18.1 % (11.7-14.2); RDW Standard Deviation 60.6 fL (35.1-46.3); Red Blood Cell Count 3.31 M/mm3 (3.80-5.20); White Blood Cell Count 8.02 K/mm3 (4.00-11.30)
[2022-02-11 12:31] LABS: International Normalized Ratio 1.32; Prothrombin Time Results 13.6 Sec (9.7-11.5)
[2022-02-11 12:32] LABS: Albumin/Globulin Ratio 0.9 (0.8-1.8); Bilirubin, Total 2.8 mg/dL (0.1-1.0); Bun/Creatinine Ratio 36.3 (12.0-20.0); Calcium, Blood 8.4 mg/dL (8.5-10.1); Creatinine, Blood 1.24 mg/dL (0.40-1.00); Globulin, Blood 3.2 g/dL (2.2-4.0); Potassium, Blood 5.2 mmol/L (3.5-5.5); Total Protein, Blood 6.2 g/dL (6.4-8.2)
[2022-02-11 14:09] LABS: Influenza A, PCR NEGATIVE (NEGATIVE); Influenza B, PCR NEGATIVE (NEGATIVE); Resp Syncytial Virus, PCR NEGATIVE (NEGATIVE); SARS-Cov-2 (COVID-19) PCR, MMC NEGATIVE (NEGATIVE)
== END 2022-02-11 16:22 | disposition home or self-care (01) ==
LOC: ER 10:52
PROVIDERS: Emergency Medicine
DX: J90 Pleural effusion, not elsewhere classified (principal); K74.60 Unspecified cirrhosis of liver; E03.9 Hypothyroidism, unspecified; Z20.822 Contact with and (suspected) exposure to COVID-19; Z88.0 Allergy status to penicillin; Z79.899 Other long term (current) drug therapy
CPT/HCPCS: 0241U; 32555; 36415; 71045; 80053; 85025; 85610; 93005; 93010; 96374; 99285-25; J1940

== ENCOUNTER 2022-02-13 09:37 | Day surgery (SDC) | payer SELFPAY | END 2022-02-13 23:20 | disposition home or self-care (01) | LOC: US 09:37 | DX: R18.8 Other ascites (principal); J90 Pleural effusion, not elsewhere classified | CPT/HCPCS: 32555; 49083; 71046 ==

== ENCOUNTER 2022-02-19 13:25 | Day surgery (SDC) | payer SELFPAY | END 2022-02-19 23:40 | disposition home or self-care (01) | LOC: US 13:25 | DX: J90 Pleural effusion, not elsewhere classified (principal); R18.8 Other ascites | CPT/HCPCS: 32555; 71045 ==

== ENCOUNTER 2022-02-22 20:56 | Inpatient (IN) | payer MEDICARE, OTHER ==
[~2022-02-22] VITALS: Ht 170.2 cm; Wt 89.0 kg
[2022-02-22 21:11] LABS: BASOPHILS ABSOLUTE AUTO 0.02 K/mm3 (0.00-0.23); BASOPHILS PERCENT AUTO 0 % (0-2); EOSINOPHILS PERCENT AUTO 1 % (0-6); Hematocrit 27.3 % (33.0-51.0); Hemoglobin 9.1 g/dL (11.5-16.0); IMMATURE GRAN ABSOLUTE AUTO 0.02 K/mm3 (0.00-0.10); IMMATURE GRAN PERCENT AUTO 0 % (0-1); LYMPHOCYTES ABSOLUTE AUTO 0.56 K/mm3 (0.84-5.20); LYMPHOCYTES PERCENT AUTO 7 % (21-46); MONOCYTES ABSOLUTE AUTO 0.63 K/mm3 (0.16-1.47); MONOCYTES PERCENT AUTO 8 % (4-13); Mean Corpuscular HGB 29.5 pg (26.0-34.0); Mean Corpuscular HGB Conc 33.3 g/dL (31.5-36.5); Mean Corpuscular Volume 89 fL (80-100); Mean Platelet Volume 9.5 fL (9.1-12.4); NEUTROPHILS ABSOLUTE AUTO 6.57 K/mm3 (1.96-9.15); NEUTROPHILS PERCENT AUTO 83 % (41-73); Platelet Count 157 K/mm3 (150-400); RDW Coefficient Variation 18.5 % (11.7-14.2); RDW Standard Deviation 58.1 fL (35.1-46.3); Red Blood Cell Count 3.08 M/mm3 (3.80-5.20)
[2022-02-22 21:21] LABS: Base Excess Venous -4.8 mmol/L; Bicarbonate Venous 20.9 mmol/L (24.0-30.0); PCO2 Venous 32.6 mmHg (38-42); PO2 Venous 71.1 mmHg (38-42)
[2022-02-22 21:37] LABS: Albumin, Blood 2.5 g/dL (3.4-5.0); Albumin/Globulin Ratio 0.7 (0.8-1.8); Bilirubin, Total 3.4 mg/dL (0.1-1.0); Bun/Creatinine Ratio 35.8 (12.0-20.0); Calcium, Blood 8.7 mg/dL (8.5-10.1); Creatinine, Blood 1.73 mg/dL (0.40-1.00); Globulin, Blood 3.5 g/dL (2.2-4.0)
[2022-02-22 21:39] LABS: Potassium, Blood 7.1 mmol/L (3.5-5.5)
[2022-02-22 21:43] LABS: Source, Urine Foley catheter
[2022-02-22 21:45] LABS: Bilirubin, Urine Neg (Neg); Blood, Urine 2+ (Neg); Glucose Qualitative, Urine Neg (Neg); Ketones, Urine Neg (Neg); Leukocyte Esterase, Urine 3+ (Neg); Nitrite, Urine Neg (Neg); Protein, Urine 1+ (Neg); Specific Gravity, Urine 1.015 (1.003-1.022); Urobilinogen, Urine NORM (Normal)
[2022-02-22 22:01] LABS: U Amphetamine Screen Not Detected; U Barbituate Screen Not Detected; U Benzodiazapine Screen Not Detected; U Buprenorphine Screen Not Detected; U Cannabinoids Screen Not Detected; U Cocaine Screen Not Detected; U Methadone Screen Not Detected; U Methamphetamine Screen Not Detected; U Opiates Screen Not Detected; U Oxycodone Screen Not Detected; U Phencyclidine Screen Not Detected; U Propoxyphene Screen Not Detected
[2022-02-22 22:19] LABS: Appearance, Urine Hazy (Clear); Color, Urine Yellow (P-Yellow)
[2022-02-22 22:22] LABS: Squamous Epithelial Cells Few /hpf (Few); White Blood Cells, Urine 25-50 /hpf (0-5)
[2022-02-22 22:23] LABS: Bacteria Many /hpf; Hyaline Casts 0-2 /lpf (0-2)
[2022-02-22 23:51] LABS: International Normalized Ratio 1.42; Prothrombin Time Results 14.6 Sec (9.7-11.5)
[2022-02-23 00:55] LABS: Glucose, Body Fluid 109 mg/dL; Lactate Dehydrogenase, Body Fl 38 U/L; Protein, Body Fluid 0.6 g/dL
[2022-02-23 01:09] LABS: Automated BF RBC Count 0.005 M/mm3 (0-0); Automated BF WBC Count 0.127 K/mm3 (0-999); Body Fluid WBC Count 127 /mm3 (0-999); RBC Count, Body Fluid 5000 /mm3 (0-0)
[2022-02-23 02:30] LABS: Total Cell Count, Body Fluid 100
[2022-02-23 02:31] LABS: Appearance, Body Fluid Cloudy (Clear); Color, Body Fluid Yellow (None-Yellow)
[2022-02-23 02:35] LABS: Hematocrit 23.6 % (33.0-51.0); Hemoglobin 8.1 g/dL (11.5-16.0); Mean Corpuscular HGB 29.8 pg (26.0-34.0); Mean Corpuscular HGB Conc 34.3 g/dL (31.5-36.5); Mean Corpuscular Volume 87 fL (80-100); Mean Platelet Volume 9.2 fL (9.1-12.4); Platelet Count 152 K/mm3 (150-400); RDW Coefficient Variation 18.6 % (11.7-14.2); RDW Standard Deviation 58.6 fL (35.1-46.3); Red Blood Cell Count 2.72 M/mm3 (3.80-5.20); White Blood Cell Count 9.13 K/mm3 (4.00-11.30)
[2022-02-23 02:54] LABS: Albumin, Blood 2.4 g/dL (3.4-5.0); Albumin/Globulin Ratio 0.8 (0.8-1.8); Bilirubin, Total 2.9 mg/dL (0.1-1.0); Bun/Creatinine Ratio 32.4 (12.0-20.0); Calcium, Blood 8.2 mg/dL (8.5-10.1); Creatinine, Blood 1.79 mg/dL (0.40-1.00); Globulin, Blood 3.1 g/dL (2.2-4.0); Potassium, Blood 5.7 mmol/L (3.5-5.5); Total Protein, Blood 5.5 g/dL (6.4-8.2)
[2022-02-23 05:58] LABS: PO2 Arterial 130 mmHg (80-100); pH Blood Arterial 7.54 (7.35-7.45)
--- NOTE | 2022-02-23 07:42 | NUR ---
Received from ER at 0009. Admission assessment completed. Unable to get hx, due to non-verbal, does not track or follow directions. Eyes gazed right. pupils unequal but responsive at sluggish rate. placed on jerzy hugger due to temp being low. 0110 Dr Otoole called to report low blood pressure. Orders recv'd 0330 Dr Otoole called to report lactic acid after all labs completed. blood pressures reported as well. Orders received. 0520 increased unresponsiveness, eyes now nistagnis movement. Resp shallow, snoring/grunting. Copious amounts of secreations in mouth. attempted or oral suction but clamped down on [place] with teeth. NT suctioned large amount of secreations. tolerated well with good cough duringsuction. O2 sats remain high 90s. Orders received. 0615 ABG results called to Dr Otoole and report given of even further decline in mental status and declining condition. States at this time will not get more aggressive in treatment as per daughter's wishes. Will continue current treatment as ordered. Jerzy lester removed R/T temp back WNL 0645 Daughter called to update on declining condtion. daughter will be on her way to visit but will be a couple hours due to distance.
--- NOTE | 2022-02-23 07:50 | NUR ---
ASSUMED CARE OF PT THIS AM PT. UNRESPONSIVE AT THIS TIME, EYES OPEN, NYSTAGMUS NOTED. PT DOES NOT WITHDRAW FROM STIMULI. PT. TURNED TO SIDE DUE TO COPIOUS AMT OF SECREATIONS FROM MOUTH, UNABLE TO CLEAR SECREATIONS, CURRENTLY ON RA, WITH IRREGULAR BREATHING PATTERN. HR 90S, HYPOTENSIVE, LEVOPHED GTT INFUSING, TITRATED UP TO 8MCG/MIN. CURRENTLY INFUSING THROUGH POWERGLIDE DUE TO POOR PERIPHERAL ACCESS. POSITIVE BLOOD RETURN FROM PG, SITE ASSESSMENT WNL. PT. HAS NG TUBE IN PLACE, CLAMPED AT THIS TIME. PT. HAS VERY FRAGILE SKIN. MULTIPLE BRUISES AND SKIN TEARS T/O ALONG WITH EXCORIATION TO LORENE AREA AND SKIN FOLDS. PT. HAS RECTAL TUBE IN PLACE FOR LACTULOSE ENEMAS, AND MEDEIROS TEMP PROBE DRAINING SMALL AMT OF DARK CLOUDY URINE. PT DNR/DNI CONFIRMED BY DAUGHTER, DAUGHTER CONTACTED BY NOC SHIFT RN, AWAITING HER ARRIVAL. PALLIATIVE CARE CALLED THIS AM.
--- NOTE | 2022-02-23 09:30 | NUR ---
DAUGHTER AT BEDSIDE, TEARFUL. STATES"I DONT WANT HER TO SUFFER BUT I WANT TO RESPECT HER DECISIONS". DR. IVAN TO BEDSIDE, AFTER TALKING WITH DAUGHTER, PT TRANSITIONED TO COMFORT CARE. PALLIATIVE CARE TEAM CALLED FOR ASSISTANCE AND SUPPORT.
--- NOTE | 2022-02-23 18:01 | NUR ---
SHIFT SUMMARY PT. REMAINS COMFORT CARE. PT DAUGHTER AT BEDSIDE T/O DAY, MED FOR DISCOMFORT WITH MORPHINE IV. REPORT TO OFFGOING RN.
--- NOTE | 2022-02-23 19:58 | NUR ---
ASSESSMENT/ASSUMED CARE PT COMFORT CARE STATUS. PT REPOSITIONED. OPENS EYES BRIEFLY WITH TURNING. NOT RESPONDING. NO FAMILY AT BEDSIDE. TURNED FOR COMFORT, CATH CARE AND ORAL CARE DONE.
--- NOTE | 2022-02-24 00:26 | NUR ---
TRANSFER PT TRANSFERING TO 305 REPORT CALLED TO RN
--- NOTE | 2022-02-24 00:30 | NUR ---
REPORT RECIEVED FROM SHIRA, BULK TANK CAR UNLOADER AND AWAITING PT T/F TO ROOM 305.
--- NOTE | 2022-02-24 00:50 | NUR ---
PT T/F VIA BED TO ROOM 305 AT O035. SHE'S ON COMFORT CARE IS NONRESPONSIVE, NONVERBAL AND ONLY OPENED EYES DURING SLIDE T/F BRIEFLY BEFORE CLOSING THEM AGAIN. RESPS ARE E/U, APPROX 8-10 BREATHS/MIN AND NO AIR HUNGER OBSERVED. IV'S ARE SL'D AND MEPILEX DX'S TO EXT'S OBSERVED C/D/I. MEDEIROS CATH PATENT/DRAINING AND RECTAL TUBE IN PLACE. NO S/S PAIN OR DISTRESS. PLAN FOR Q2H REPOSITIONING AND MOUTH CARE PRN.
--- NOTE | 2022-02-24 04:46 | NUR ---
SUMMARY: COMFORT MEASURES MAINTAINED. SHE REMAINS UNRESPONSIVE, NONVERBAL AND ONLY OPENS EYES MOMENTARILY AT TIMES W/REPOSITIONING. TURN SCHEDULE MAINTAINED AND MOUTH CARE PROVIDED PRN. MEDEIROS IS PATENT/DRAINING. RECTAL TUBE IN PLACE. NO PRN MEDS WERE REQUIRED AND PT CONT'S W/O S/S PAIN, AIR HUNGER OR DISTRESS. NO ACUTE CHANGES. FAMILY TO RETURN TO BEDSIDE TODAY. WCTM/REPORT TO DAY RN.
--- NOTE | 2022-02-24 08:00 | NUR ---
PT NONRESPONDANT. DID MOVE FINGERS. DID NOT OPEN EYES. MOVE TOES OR FEET. ORAL CARE PERFORMED. DID NOTOPEN EYES. PEACEFUL, RELAXED, NO APPARENT DISTRESS NOTED. NO PULSES FELT IN FEET OR RADIAL. H/R IS REG, 68, MURMER NOTED. PT IS EDEMATOUS. PRESENTLY ON R/A. RESP AT 11. DEEP SLOW BREATHINE. PAUSING SOME BETWEEN BREATHS. PRESENTLY CLEAN AND DRY. HAS MEDEIROS CATH. AND RECTAL TUBE IN PLACE. BED IN LOW POSITION, CALL LITE IN REACH, BED ALARM ON FOR SAFETY.
--- NOTE | 2022-02-24 15:02 | NUR ---
PT RESTING RELAXED. H/R 76, RESP 12. EYES CLOSED. FAMILY GONE AT THIS TIME.
--- NOTE | 2022-02-24 16:53 | NUR ---
Pt respirtions increaseing some clenching. Review of medications with nursing. No twitching noted today. Will continue to monitor advised medcate for air hunger.
--- NOTE | 2022-02-24 17:39 | NUR ---
PALL[facility]IVE [facility]ARE TO SEE PT. THEY REPORT PT IS GRIMACING AND HAS INCREASED BREATHING. ASSESSED PT. H/R IN 60'S AND RR 12 BEFORE GIVING 1MG MORPHINE. RESPIRATIONS AND H/R UNCHANGED AFTER GIVING MEDICATION.
--- NOTE | 2022-02-24 17:51 | NUR ---
PT NONRESPONDANT TODAY. DID OPEN EYES ONCE DURING TURN. THEN BACK TO REST. SELINA FROM PALIATIVE [facility]ARE TO SEE PT. STATES HAS BEEN TO SEE HER AND SHE HAS BEEN GRIMMACING. DID GO ASSESS PATIENT. MED PER EMAR. RESP CONTINUE AT ABOUT 12 T/O DAY. H/R CONTINUES AT ABOUT 60. PT RESTING QUIET AT THIS TIME. BED IN LOW POSITION, CALL LITE IN REACH, BED ALARM ON FOR SAFETY
--- NOTE | 2022-02-24 21:47 | NUR ---
MEPILEX TO RIGHT LOWER ABDOMEN APPEARED YELLOW SO WAS CHANGED. PT APPEARED UNCOMFORTABLE AFTER REPOSITIONING SO WAS MEDICATED PER DEC. BED REPOSITIONED TO ASSIST WITH RECTAL TUBE DRAINING. PT GIVEN WARM BLANKET AND TUCKED IN.
--- NOTE | 2022-02-25 06:13 | NUR ---
MILL TENDER SUMMARY PT RESTING COMFORTABLY. SHE WAS REPOSITIONED Q2H. HER BREATHING HAS SLOWED DOWN AND BECOME DEEPER. PT ALSO SEEMS TO BITE DOWN ON HER LIP. SHE HAS MORE GURGLING WITH HER BREATHING. PT MEDICATED X1 FOR PAIN AFTER TURNING AND X2 FOR SECRETIONS. SHE IS CURRENTLY RESTING
--- NOTE | 2022-02-25 07:26 | NUR ---
ASSUMED CARE OF PATIENT. PATIENT APPEARS COMFORTABLE AND IN NO DISTRESS AT THIS TIME. SECRETIONS NOTED, SCOPALAMINE PATCH IN PLACE AND ATROPINE DROPS PRN.
--- NOTE | 2022-02-25 11:33 | NUR ---
PATIENT REPOSITIONED AND ORAL CARE COMPLETED. DAUGHTER MYRNA AT BEDSIDE. MEDICATED WITH MORPHINE FOR PAIN AND DYSPNEA.
--- NOTE | 2022-02-25 17:00 | NUR ---
Spiritual Care Visit. ...at the request of attending nurse. Pt. is on comfort care. NOK daughter is present and welcomes my visit. Daughter is unsettled about unresolved conflicts with the pt. and verbalizes her support system is not local. Listened empathetically and with a comforting presence responded with pastoral care. At several points the daughter became cathartic. At one point nurses came in to reposition the Pt. Afterward, developed rapport and facilitated a life review. Engaged in discussion regarding pts. belief system. Presented an EOL blessing based on traditional values of the Spirit. Daughter recorded the EOL blessing for distant family members. Daughter displayed evidence of Peace and Encouragement. Daughter verbalized gratitude for the Spiritual Care visit. This vocational evaluator updated the attending nurse that an EOL blessing had been given.
--- NOTE | 2022-02-25 17:30 | NUR ---
DAUGHTER MYRNA AT BEDSIDE. CAMPGROUND CLEANING ATTENDANT CAME BY TO SEE HER AND PROVIDE EXTRA SUPPORT. PATIENT APPEARS COMFORTABLE, ORAL CARE COMPLETED AND PATIENT REPOSITIONED. MYRNA DENIES ANY FURTHER NEEDS AT THIS TIME.
--- NOTE | 2022-02-26 05:08 | NUR ---
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 PT BREATHING HAS SLOWED SIGNIFICANTLY. MEDICATED X1 FOR PAIN POST REPOSITIONING AND X1 FOR INCREASED SECRETIONS. PT APPEARS TO BE RESTING COMFORTABLY.
--- NOTE | 2022-02-26 06:23 | NUR ---
PT MOANING WITH EXPIRATION. BREATHING LABORED WITH APNEIC PERIODS. GARGLING EXPIRATIONS.
--- NOTE | 2022-02-26 09:07 | NUR ---
Comfort Care Visit Pt resting in bed with her eyes closed. Pt minimally responsive, briefly opens her eyes to gentle verbal stimuli. Respiratory rate decreased to 6 per/min. Pt appears comfortable with no S/S of distress at this time. Spoke with Primary RN Justine and discussed case. No concerns reported at this time. Palliative Care will remain available.
--- NOTE | 2022-02-26 10:10 | NUR ---
TURNED PATIENT AND ORAL CARE COMPLETE. MEDICATED WITH MORPHINE. SCOPALAMINE PATCH CHANGED. NO FAMILY CURRENTLY AT BEDSIDE.
--- NOTE | 2022-02-26 14:00 | NUR ---
DAUGHTER AND GRANDDAUGHTER AT BEDSIDE. PATIENT REPOSITIONED AND APPEARS COMFORTABLE. DAUGHTER MYRNA DENIES ANY NEEDS AT THIS TIME.
--- NOTE | 2022-02-26 17:54 | NUR ---
SHIFT SUMMARY: PATIENT RESTING COMFORTABLY THROUGHOUT THE SHIFT. SHE IS NONVERBAL AND ONLY OPENS HER EYES TO BEING ROTATED. DAUGHTER AND GRANDDAUGHTER HERE DURING THE DAY TO VISIT. DAUGHTER STATED SHE WOULD BE BACK AT A LATER TIME. SHE RECEIVED A BED BATH AND 2 DOSES OF MORPHINE FOR PAIN MEASURES FROM ROTATING HER. MOUTH CARE PROVIDED. MEDEIROS IS PATENT AND DRAINING. RECTAL TUBE IS IN PLACE. PATIENTS BREATHING IS DEEP AT ABOUT 6 BREATHS PER MINUTE. WILL CONTINUE TO MONITOR.
--- NOTE | 2022-02-27 05:03 | NUR ---
Pt on comfort care. Pt moaning after midnight. Prn morphine given at 0136., 0255, 0457 for pain/comfort and prn ativan at 0308 for anxiety. Pt repositioned q 2hrs. Rectal tube and coats catheter in situ.
--- NOTE | 2022-02-27 11:20 | NUR ---
Pt resting in bed with her eyes closed. Pt appears comfortable with no S/S of distress at this time. Pt appears to be actively dying. Spoke with Primary RN Lida and discussed case. Palliative Care will remain available.
--- NOTE | 2022-02-27 11:33 | NUR ---
Spiritual Care Pt. is on comfort care and is not responsive. Speak calming words of pastoral outreach counselor and pray a blessing over the pt. Will continue to seek opportunity to connect with Pts. daughter.
--- NOTE | 2022-02-27 18:50 | NUR ---
COMFORT CARE SUMMARY PATIENT MEDICATED X3 FOR PAIN. PATIENT GROANING ON AND OFF THROUGHOUT SHIFT. DAUGHTER AT BEDSIDE AT END OF SHIFT. PATIENT RECIEVED BED BATH. PATIENT REPOSITIONED THROUGHOUT SHIFT. PATIENT APPEARS COMFORTABLE AT END OF SHIFT.
--- NOTE | 2022-02-28 03:05 | NUR ---
PT STATUS PT IS NOT MOANING THIS SHIFT. PT APPEARS COMFORTABLE. SHE HAS SLEPT THROUGHOUT SHIFT. SHE OPENS HER EYES WHEN WE Q2 TURN HER. THERE ARE NO S/SX OF PAIN VISIBLE AT THIS TIME.
--- NOTE | 2022-02-28 05:22 | NUR ---
PT ON COMFORT CARE. PT COMFORTABLE AND RESTING THIS SHIFT. REPOSITIONED [id number]. NO GRIMACING, GRUNTING OR MOANING NOTED. LORENE-CARE PROVIDED. POWERGLIDE L) UPPER ARM FLUSHED W/O DIFFICULTY.
--- NOTE | 2022-02-28 10:56 | NUR ---
gave smo care.
--- NOTE | 2022-02-28 13:03 | NUR ---
PT IS RERSTING COMFORTABLY. PT GIVEN PAIN MEDICATION AND REPOSTIONED.
--- NOTE | 2022-02-28 14:50 | NUR ---
PT IS RESTING COMFORTABLEY. PT HAS BEEN REPOSITIONED AND ATROPINE GIVEN FOR EXCESS SECRETIONS.
--- NOTE | 2022-02-28 16:52 | NUR ---
PT WAS SLEEPING COMFORTABLE THROUGHOUT SHIFT. PT WAS GIVEN PAIN MEDICATION PER EMAR PROTOCOL FOR PAIN AND SECRETIONS. PT WAS REPOSTIONED Q2HRS. PT DRESSING ON HER DORSAL LEFT HAND WAS CHANGE. PT FAMILY WILL BE COMING IN THE EVENING TO BE WITH PT.PT SLEEPING SLEEPING WITH CALL LIGHT WITHIN REACH.
--- NOTE | 2022-02-28 17:24 | NUR ---
SHIFT SUMMARY PT RESTING QUIETLY AT START OF SHIFT. NO S/SX'S OF DISTRESS NOTED. PT HAS BEEN ON COMFORT CARE AND MOSTLY UNRESPONSIVE. ATROPINE DROPS GIVEN A COUPLE OF TIMES FOR SECRETIONS. MEDICATED WITH ROXANOL PER EMAR FOR MOANING WITH TURNING AND REPOSITIONING. ORAL CARE DONE WITH PT BITING DOWN ON SPONGES. DR SOTO IN THIS AM; NEW ORDERS PLACED. DAUGHTER CALLED TO CK ON PT AND TO COME IN THIS EVENING. WILL CONTINUE TO MONITOR.
--- NOTE | 2022-02-28 18:07 | NUR ---
pt progressing will continue to monitor.
--- NOTE | 2022-03-01 05:08 | NUR ---
Pt on comfort care. No s/s of pain. Pt resting in bed comfortably. No distress noted. No prn meds given. Powerglide to L) upper arm flushed w/o difficulty. Oral and som care provided. Turned q2hrs. Will continue to monitor.
--- NOTE | 2022-03-01 07:51 | NUR ---
PT RESTING QUIETING. PT REPOSTIONED AND GIVEN CATH CARE.
--- NOTE | 2022-03-01 09:06 | NUR ---
PT OPEN EYES AND MOANS DURING REPOSITION AND CATH CARE. PT MEDICATED PER EMAR PROTOCOL.
--- NOTE | 2022-03-01 10:27 | NUR ---
PT MOANS AND HAS EXCESS SECRETIONS, RR 10. PT WAS MEDICATED PER EMAR PROTOCOL.
--- NOTE | 2022-03-01 11:34 | NUR ---
PT IS HAVING EPSIODES OF APNEA, MOANING AND RR AT 9. PT HAS BEEN MEDICATED PER EMAR PROTOL.
--- NOTE | 2022-03-01 17:25 | NUR ---
SHIFT SUMMARY PT RESTING QUIETLY DURING SHIFT REPORT, BUT SOON STARTED MOANING. PT MEDICATED PER EMAR. PT MOANING OFF AND ON THRU OUT THE DAY. REPOSITIONED AND MEDICATED FOR COMFORT. PALLIATIVE CARE IN TO CHECK ON PT A COUPLE OF TIMES TODAY. PT FINALLY PASSING THIS AFTERNOON. TOD @ 1538. ATTEMPTED TO NOTIFY DAUGHTER @ 1542 AND LEFT MESSAGE TO CALL HOSPITAL. DR SOTO NOTIFIED OF PT'S PASSING @ 1553. PALLIATIVE CARE RN ABLE TO NOTIFY DAUGHTER. CHAPMARIANA NOTIFIED AND TODD MORALES HERE AT 1700 TO WOOD TREATING INSPECTOR BODY. FAMILY DECLINED TO COME IN.
--- NOTE | 2022-03-01 17:52 | NUR ---
PT WAS RESTING COMFORTABLE AT THE BEGINNING OF THE SHIFT. PT WAS MEDICATED PER EMAR PROTOCOL. PT BECAME RESTLESS, MOANING AND OPENING EYES MID SHIFT. PT MEDICATED WITH IV MORPHINE AND ATIVAN. PT REPOSTIONED AND GIVEN CATH CARE. PT PASSED AT 1438. PT PICC, MEDEIROS AND RECTAL TUBED REMOVED. POST CARE GIVEN TO PT. PT FAMILY WAS CALLED BUT UNABLE TO BE REACHED. CN NURSE AND CURRICULUM CONSULTANT NOTFIED OF PT PASSING. PALLIATIVE CARE NOTIFIED OF PT PASSING. PALLIATIVE CARE REACHED PT FAMILY. CHAPEL OF THE [facility] NOTIFED AND ARRIVED AT 1700.
== END 2022-03-01 15:38 | DRG 442 ==
LOC: ER 20:56 → MEDS 22:56 → ICUW 22:56 → MEDS 02-24 00:36
PROVIDERS: Emergency Medicine; Student in an Organized Health Care Education/Training Program; ADMIT Internal Medicine
PROC: 0W9G3ZZ Drainage of Peritoneal Cavity, Percutaneous Approach (ICD-10-PCS; principal; 2022-02-22)
PROC: 3E033XZ Introduction of Vasopressor into Peripheral Vein, Percutaneous Approach (ICD-10-PCS; 2022-02-23)
DX: K72.00 Acute and subacute hepatic failure without coma (principal); N17.9 Acute kidney failure, unspecified; E87.2 Acidosis; E87.1 Hypo-osmolality and hyponatremia; N39.0 Urinary tract infection, site not specified; Z66 Do not resuscitate; Z51.5 Encounter for palliative care; R18.8 Other ascites; J90 Pleural effusion, not elsewhere classified; K74.60 Unspecified cirrhosis of liver; E03.9 Hypothyroidism, unspecified; E87.5 Hyperkalemia; T68.XXXA Hypothermia, initial encounter; B19.20 Unspecified viral hepatitis C without hepatic coma; B95.2 Enterococcus as the cause of diseases classified elsewhere; D63.1 Anemia in chronic kidney disease; N18.30 Chronic kidney disease, stage 3 unspecified; I50.9 Heart failure, unspecified; Z79.899 Other long term (current) drug therapy; Z88.0 Allergy status to penicillin; X58.XXXA Exposure to other specified factors, initial encounter
CPT/HCPCS: 32555; 36600; 49083; 51702; 70450; 71045; 80053; 81001; 82140; 82550; 82803; 82945; 82947; 83605; 83615; 84157; 85025; 85027; 85610; 87040; 87070; 87075; 87077; 87086; 87186; 87205; 89051; 93005; 93010; 96374; 96375; 99285-25; A9270; C1751; C9113; J0696; J1815; J1940; J2060; J2270; J2405; J7030; J7060; J7799